=== PATIENT | female | born 1980 | race Caucasian/White ===

== ENCOUNTER 2019-08-18 16:46 | Inpatient (IN) | payer SELFPAY ==
[2019-08-18] VITALS (7 sets, daily range): BP systolic 102–118; BP diastolic 67–77; PULSE 66–101; RESP 16–18; TEMP 36.7–37.1; O2SAT 93–100; BMI 16.0
--- NOTE | 2019-08-18 17:57 | ED_ITS ---
HPI - Psych General: Chief Complaint: Psychiatric Symptoms Stated Complaint: MHE Time Seen by Provider: 08/18/19 17:56 History of Present Illness: HPI Narrative: Patient is a 38-year-old female comes into the ED feeling depressed and wanting to harm herself. Patient has past medical history of depression, anxiety, posttraumatic stress disorder and borderline personality disorder. She also has a history of opiate abuse. She admits to smoking marijuana but denies any other drug use or abuse. Denies any alcohol use. She states she's had multiple suicide attempts in the past all by overdose. Last October she lost her insurance and subsequently was unable to fill her psych medications and stopped going to go on to see behavioral health. She says since October things have gone downhill. She has trouble eating and feels like she doesn't have an appetite, has trouble sleeping, low energy, hopelessness and feels like wanting to end her life. Patient also describes some paranoia and feels like she can't trust people that are close to her. Patient states that she has not overdosed on any meds today had any suicide attempt today but was feeling very depressed and thinking about it a lot. She then decided she wanted to come into the emergency department to get help. She also is complaining of some right anterior wall pleuritic chest pain that started after she had a fall. Fall occurred about a week ago. Denies any loss of consciousness, head trauma, nausea, vomiting after fall. Denies any homicidal ideation, visual hallucinations, auditory hallucinations, shortness of breath, vomiting, abdominal pain, change in bowel movements, urine symptoms, numbness or tingling, weakness to extremities. Review of Systems General: Reports: 10 or more systems reviewed and unremarkable except in HPI and below PFSH ED PFSH: Statuses (acute, chronic, etc) shown below reflect problem list status as previously entered and may not be historically accurate Social History Smoking and tobacco status: current every day smoker Physical Exam Const: COMMON NORMALS: oriented x3 HENMT: COMMON NORMALS: normocephalic HEAD & SCALP: normocephalic MOUTH: oral and palatal mucosa normal THROAT: posterior oropharynx normal and uvula midline Neck/C-Spine: COMMON NORMALS: supple GENERAL: Yes normal visual inspection Chest: CHEST: Yes tenderness costochondral junction right anterior-axillary line involving the 7th rib and 8th rib Resp: COMMON NORMALS: normal respiratory effort, no retractions, no use of accessory muscles and clear to auscultation bilaterally AUSCULTATION: clear to auscultation bilaterally Cardio: COMMON NORMALS: regular rate, regular rhythm, S1 normal heart sound, S2 normal heart sound, no gallops, no clicks, no murmurs and peripheral pulses 2+ throughout RATE: regular rate RHYTHM: regular rhythm HEART SOUNDS: S1 normal and S2 normal PERIPHERAL PULSES: pulses 2+ throughout GI: COMMON NORMALS: normal to inspection, nondistended, normoactive bowel sounds, soft to palpation, non-tender and no masses PALPATION: Yes soft : COMMON NORMALS: Yes no CVA tenderness BLADDER/KIDNEY EXAM: Yes no CVA tenderness Back/Pelvis: COMMON NORMALS: no CVA tenderness Neuro: COMMON NORMALS: oriented x3, CN's II-XII intact bilaterally, moves all extremities, no focal motor deficits and no sensory deficits noted SENSORY EXAM: Yes extremities (intact) MOTOR EXAM: strength 5/5 throughout Psych: COMMON NORMALS: mental status grossly normal, thought process normal, cooperative, speech normal, activity/motor behavior normal, denies hallucinations and denies homicidal ideation ATTITUDE: Yes paranoid (paranoid of people close to her) SPEECH: Yes normal speech MOOD & AFFECT: Yes depressed mood, Yes sad and Yes tearful THOUGHT PROCESS: normal thought process THOUGHT CONTENT: Yes suicidality ATTENTION/CONCENTRATION: Yes attention grossly intact and Yes concentration grossly intact MEMORY/COGNITION: Yes memory grossly intact and Yes cognition grossly intact Skin: COMMON NORMALS: no rashes or lesions noted GENERAL SKIN EXAM: no rashes or lesions noted MDM - Psych Lab Data: Attestation: I reviewed the patient's lab results. Labs: Lab Results 08/18/19 08/18/19 08/18/19 Range/Units 17:03 17:03 17:03 WBC (4.0-10.0) 10^3/ uL RBC (4.1-5.3) 10^6/u L Hgb (11.5-15.3) g/dL Hct (37.0-47.0) % MCV (81-99) fL MCH (28.0-34.0) pg MCHC (30.0-36.0) g/dL RDW (12.1-15.1) % Plt Count (130-400) 10^3/c mm MPV (7.4-10.4) fL Neut % (Auto) % Lymph % (Auto) % Bremer % (Auto) % Eos % (Auto) % Baso % (Auto) % Neut # (Auto) (1.8-7.7) 10^3/u L Lymph # (Auto) (0.8-4.8) 10^3/u L Bremer # (Auto) (0.2-0.9) 10^3/u L Eos # (Auto) (0.0-0.8) 10^3/u L Baso # (Auto) (0.0-0.1) 10^3/u L Nucleated RBC % (a uto) % Nucleated RBCs # /100WBC PT (10.5-13.3) SECO NDS INR (0.8-1.2) Sodium (136-145) mmol/L Potassium (3.5-5.1) mmol/L Chloride (98-107) mmol/L Carbon Dioxide (22-29) mmol/L Anion Gap (5-19) BUN (6-20) mg/dL Creatinine (0.5-0.9) mg/dL GFR Calculation (90-130) mL/min Glucose (74-109) mg/dL Calcium (8.6-10.0) mg/Dl Total Bilirubin (0.15-1.2) mg/dL AST (0-32) U/L ALT (0-33) U/L Alkaline Phosphata se (35-105) IU/L Total Protein (6.6-8.7) g/dL Albumin (3.5-5.2) g/dL Globulin (1.3-4.6) g/dL TSH (0.27-4.20) uIU/ mL HCG, Qual Negative (Negative) Urine Color Yellow (Yellow) Urine Appearance Clear (CLEAR) Urine pH 5 (5-7) Ur Specific Gravit y 1.025 (1.005-1.030) Urine Protein Neg (Negative) Urine Glucose (UA) Norm (Normal) Urine Ketones Negative (Negative) Urine Occult Blood 2+ H (Negative) Urine Nitrate Negative (Negative) Urine Bilirubin Neg (NEGATIVE) Urine Urobilinogen Norm (Negative) mg/dL Ur Leukocyte Marily ase Negative (Negative) Urine RBC 5-10 H (0-2) /hpf Urine WBC 0-4 H (0-5) /hpf Ur Squamous Epith Cells 10-15 H (0-5) Urine Bacteria 1+ H (NONE) Urine Mucus 2+ Salicylates (3-10) mg/dL Urine Opiates Scre en Negative (Negative) ng/mL Acetaminophen (10-30) ug/mL Ur Barbiturates Sc reen Negative (Negative) ng/mL Ur Phencyclidine S crn Negative (Negative) ng/mL Ur Amphetamines Sc reen Positive H (Negative) ng/mL U Benzodiazepines Scrn Negative (Negative) ng/mL Urine Cocaine Scre en Negative (Negative) ng/mL U Marijuana (THC) Screen Positive H (Negative) ng/mL Ethyl Alcohol (0-10) mg/dL 08/18/19 08/18/19 08/18/19 Range/Units 19:28 19:28 19:28 WBC 7.1 (4.0-10.0) 10^3/ uL RBC 4.11 (4.1-5.3) 10^6/u L Hgb 12.4 (11.5-15.3) g/dL Hct 37.5 (37.0-47.0) % MCV 91.2 (81-99) fL MCH 30.2 (28.0-34.0) pg MCHC 33.1 (30.0-36.0) g/dL RDW 12.3 (12.1-15.1) % Plt Count 298 (130-400) 10^3/c mm MPV 8.5 (7.4-10.4) fL Neut % (Auto) 49.5 % Lymph % (Auto) 42.7 % Bremer % (Auto) 5.9 % Eos % (Auto) 1.7 % Baso % (Auto) 0.1 % Neut # (Auto) 3.5 (1.8-7.7) 10^3/u L Lymph # (Auto) 3.1 (0.8-4.8) 10^3/u L Bremer # (Auto) 0.4 (0.2-0.9) 10^3/u L Eos # (Auto) 0.1 (0.0-0.8) 10^3/u L Baso # (Auto) 0.0 (0.0-0.1) 10^3/u L Nucleated RBC % (a uto) 0 % Nucleated RBCs # 0.0 /100WBC PT 13.50 H (10.5-13.3) SECO NDS INR 1.00 (0.8-1.2) Sodium 141 (136-145) mmol/L Potassium 4.2 (3.5-5.1) mmol/L Chloride 105 (98-107) mmol/L Carbon Dioxide 26 (22-29) mmol/L Anion Gap 14.2 (5-19) BUN 16 (6-20) mg/dL Creatinine 0.4 L (0.5-0.9) mg/dL GFR Calculation 179.6 H (90-130) mL/min Glucose 103 (74-109) mg/dL Calcium 8.8 (8.6-10.0) mg/Dl Total Bilirubin 0.2 (0.15-1.2) mg/dL AST 11 (0-32) U/L ALT 10 (0-33) U/L Alkaline Phosphata se 79 (35-105) IU/L Total Protein 6.5 L (6.6-8.7) g/dL Albumin 3.9 (3.5-5.2) g/dL Globulin 2.6 (1.3-4.6) g/dL TSH 1.32 (0.27-4.20) uIU/ mL HCG, Qual (Negative) Urine Color (Yellow) Urine Appearance (CLEAR) Urine pH (5-7) Ur Specific Gravit y (1.005-1.030) Urine Protein (Negative) Urine Glucose (UA) (Normal) Urine Ketones (Negative) Urine Occult Blood (Negative) Urine Nitrate (Negative) Urine Bilirubin (NEGATIVE) Urine Urobilinogen (Negative) mg/dL Ur Leukocyte Marily ase (Negative) Urine RBC (0-2) /hpf Urine WBC (0-5) /hpf Ur Squamous Epith Cells (0-5) Urine Bacteria (NONE) Urine Mucus Salicylates < 0.3 L (3-10) mg/dL Urine Opiates Scre en (Negative) ng/mL Acetaminophen < 5.0 L (10-30) ug/mL Ur Barbiturates Sc reen (Negative) ng/mL Ur Phencyclidine S crn (Negative) ng/mL Ur Amphetamines Sc reen (Negative) ng/mL U Benzodiazepines Scrn (Negative) ng/mL Urine Cocaine Scre en (Negative) ng/mL U Marijuana (THC) Screen (Negative) ng/mL Ethyl Alcohol < 10 (0-10) mg/dL Imaging Data^: CXR: Attestation: I personally reviewed and interpreted this imaging study as follows: My impression: No acute abnormalities or rib fractures identified. Pending final radiology report. Discharge Plan Discharge Patient Disposition: Admitted As Inpatient Admit Provider: Lucas Thomas Condition: Stable Discharge Date/Time: 08/18/19 20:50 Coding Level of Care Code ED Air Carrier Maintenance Inspector for Rell Verde
--- NOTE | 2019-08-18 19:04 | XR_ITS ---
WS: [id number] Portable AP upright chest, 08/18/2019 Clinical Data: right anterior chest wall pain Comparison: PA and lateral chest, 07/26/2017. Findings: No nodules, masses or effusions are seen. The heart is normal. The pulmonary vascularity is not increased. No pneumonia or pneumothorax is seen. The diaphragms are minimally flattened. XR/XR chest 1V portable [id number] Impression: Mild hyperinflation.
[2019-08-18 19:23] LABS: HCG Qualitative Urine. Negative (Negative)
[2019-08-18 19:25] LABS: Add Urine Microscopic? YES; Bilirubin Urine Neg (NEGATIVE); Blood Urine 2+ (Negative); Glucose Urine UA Norm (Normal); Ketones Urine Negative (Negative); Leukocyte Esterase Urine Negative (Negative); Nitrate Urine Negative (Negative); Protein Urine Neg (Negative); Specific Gravity, Urine 1.025 (1.005-1.030); Urine Appearance Clear (CLEAR); Urine Color Yellow (Yellow); Urobilinogen Urine Norm (Negative); pH Urine 5 (5-7)
[2019-08-18 19:33] LABS: Bacteria Urine 1+; Mucus Urine 2+; WBC Urine 0-4 /hpf (0-5)
[2019-08-18 19:34] LABS: Basophils % 0.1 %; Eosinophils # 0.1 10^3/uL (0.0-0.8); Eosinophils % 1.7 %; Hematocrit 37.5 % (37.0-47.0); Hemoglobin 12.4 g/dL (11.5-15.3); Lymphocytes # 3.1 10^3/uL (0.8-4.8); Lymphocytes % 42.7 %; Mean Corpuscular HGB Conc 33.1 g/dL (30.0-36.0); Mean Corpuscular Hemoglobin 30.2 pg (28.0-34.0); Mean Corpuscular Volume 91.2 fL (81-99); Mean Platelet Volume 8.5 fL (7.4-10.4); Monocytes # 0.4 10^3/uL (0.2-0.9); Monocytes % 5.9 %; Neutrophils # 3.5 10^3/uL (1.8-7.7); Neutrophils % 49.5 %; Nucleated Red Blood Cells % 0 %; Platelet Count 298 10^3/cmm (130-400); Red Blood Count 4.11 10^6/uL (4.1-5.3); Red Cell Distribution Width 12.3 % (12.1-15.1); White Blood Count 7.1 10^3/uL (4.0-10.0)
[2019-08-18 19:40] LABS: Barbiturates Screen Urine Negative (Negative); Benzodiazepines Screen Urine Negative (Negative); Cocaine Screen Urine Negative (Negative); Opiate Screen Urine Negative (Negative); PCP Screen Urine Negative (Negative); THC Screen Urine Positive (Negative)
[2019-08-18 19:46] LABS: Amphetamines Screen Urine Positive (Negative)
[2019-08-18 20:04] LABS: Acetaminophen < 5.0 ug/mL (10-30); Alanine Aminotransferase 10 U/L (0-33); Albumin Level 3.9 g/dL (3.5-5.2); Alcohol Level < 10 mg/dL (0-10); Alkaline Phosphatase 79 IU/L (35-105); Anion Gap 14.2 (5-19); Aspartate Amino Transferase 11 U/L (0-32); Blood Urea Nitrogen 16 mg/dL (6-20); Calcium 8.8 mg/Dl (8.6-10.0); Carbon Dioxide 26 mmol/L (22-29); Chloride 105 mmol/L (98-107); Globulin 2.6 g/dL (1.3-4.6); Glomerular Filtration Rate 179.6 mL/min (90-130); Glucose 103 mg/dL (74-109); Potassium 4.2 mmol/L (3.5-5.1); Salicylate < 0.3 mg/dL (3-10); Sodium 141 mmol/L (136-145); Thyroid Stimulating Hormone 1.32 uIU/mL (0.27-4.20); Total Bilirubin 0.2 mg/dL (0.15-1.2); Total Protein 6.5 g/dL (6.6-8.7)
[2019-08-18] MEDS: LORazepam 1 mg Tablet PO (20:46)
[2019-08-18] MEDS: nicotine 21 mg Patch 1 PATCH TRANSDERMA (22:00)
[2019-08-19] MEDS: hyDROXYzine 25 mg Capsule 50 MG PO ×4 (00:46→23:57)
[2019-08-19 06:00] VITALS: BP 91/63; PULSE 71; RESP 16; TEMP 36.9; O2SAT 97
--- NOTE | 2019-08-19 07:41 | PM.NHP ---
Providers/Chief Complaint Admitting Physician: Lucas Thomas MD Chief Complaint: SUICIDAL HPI NPU History of Present Illness Chief complaint: I just want to be able to think straight. I get to where I just don't care anymore. History of present illness: Janice Finney Is a 38-year-old woman who came to the emergency room reporting that she was being labored by severe depression and having suicidal thoughts. She denied presence of intent or plan at the time. However she does report extensive psychosocial stressors that seem overwhelming and impossible over,. Specifically, she is living in the basement of a friend's house with her . Her 17-year-old daughter and 13-year-old son are living with their father and she seldom sees them. 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 She sees no way of extricating herself from the status of being homeless. She has a history of chronic pain and at the same time has a history of opiate abuse. She reports in the past she has been on methadone but most recently she was on Suboxone and is now running out of her Suboxone. When she cannot get her pain medications, she substitutes methamphetamine. She describes that as a self-destructive act are not suicide attempt. She reported a suicide attempt on the night before Jamarcus by taking a friend's and BuSpar. However that was impulsive. She reports feeling sad and blue on a daily basis. She has suicidal ideation on a daily basis that she has no intent or plan at this time. She denies a history of auditory or visual hallucinations. She reports feeling hopeless, overwhelmed, and useless. She has difficulty sleeping at night. Her appetite has been off and she has lost significant amount of weight. Her urine drug screen was positive for marijuana which she used the day prior to presentation. It was also positive for amphetamines that she reported methamphetamine use 3 days prior to presentation. She does not feel this substance use is a contributing factor as she only uses the methamphetamine when she cannot get her regularly prescribed Suboxone. Urine drug screen was positive for amphetamines and marijuana. ER note: HPI Narrative: Patient is a 38-year-old female comes into the ED feeling depressed and wanting to harm herself. Patient has past medical history of depression, anxiety, posttraumatic stress disorder and borderline personality disorder. She also has a history of opiate abuse. She admits to smoking marijuana but denies any other drug use or abuse. Denies any alcohol use. She states she's had multiple suicide attempts in the past all by overdose. Last October she lost her insurance and subsequently was unable to fill her psych medications and stopped going to go on to see [facility]. She says since October things have gone downhill. She has trouble eating and feels like she doesn't have an appetite, has trouble sleeping, low energy, hopelessness and feels like wanting to end her life. Patient also describes some paranoia and feels like she can't trust people that are close to her. Patient states that she has not overdosed on any meds today had any suicide attempt today but was feeling very depressed and thinking about it a lot. She then decided she wanted to come into the emergency department to get help. She also is complaining of some right anterior wall pleuritic chest pain that started after she had a fall. Fall occurred about a week ago. Denies any loss of consciousness, head trauma, nausea, vomiting after fall. Denies any homicidal ideation, visual hallucinations, auditory hallucinations, shortness of breath, vomiting, abdominal pain, change in bowel movements, urine symptoms, numbness or tingling, weakness to extremities. Mental health history:She was treated and outpatient rehabilitation at [facility] several visits ago. She has no inpatient psychiatric treatments at this facility according to records. She did not like being treated with Prozac because it decreased her sexual drive. Cymbalta and Wellbutrin caused her to nausea. She was last seen at the [facility] in April 2019. Her treatment plan at that time was: Stop Provigil Continue prazosin 2 mg at bedtime Continue trintillex 20 mg a day Continue Lamictal 100 mg twice a day Continue Ambien 10 mg at bedtime Continue Lamictal 25 mg twice a day Restart Adderall 10 mg twice daily for her hypersomnolence/REM sleep disorder Records also indicate that in the past she has been treated with clonazepam, Pristiq, Lamictal, methadone, Provigil and Zofran. Family psychiatric history is positive or mother being treated for depression, anxiety, and bipolar disorder. Her sister is also treated for depression and anxiety. Social history:As stated above, she is currently homeless. 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 What was not explored the reason is that she would not qualify for disability if that was the only reason that she were not working at [employer]. As stated above she has a 17-year-old daughter 13-year-old son are living with their biological father. The patient and her are living in the basement of friends. Legal history:During the interview she neglected to mention that in May 2019 she rested for Stealing - Controlled Substance/Meth [employer] Material { Aung Ross RSMo: 570.030 }. She failed to appear for her port date on 08/08/2019 and she currently has a warrant out for her arrest. Past medical history:She has no known drug allergies. She has been treated for peripheral neuropathy and chronic pain. Surgeries including cholecystectomy and tubal ligation. Mental Status Exam: Patient is alert and gave female appearing approximately her stated age. Except for some noteworthy exceptions in information that she neglected to divulge, she is generally felt to be a reliable source of information. Information presented is internally consistent and that generally supported by that in the chart. Appearance: hygiene is Good; no gross neurological deficits., gait is unremarkable; AIMS=0 Speech: Speech is of normal rate and rhythm and easily understood. Thought processes: Thought processes are abstract. Judgment is adequate for safety. Associations: intact Psychotic processes: There is no indication of guarding or paranoia. There is no attention to the internal stimuli. Auditory and visual hallucinations are denied. Judgment: Insight is Good. Problem solving skills are adequate for safety. Orientation: The patient is oriented to person, place time and situation. Memory: no deficits noted in immediate, intermediate, or remote spheres. Attention: The patient is alert and interpersonally engaged. Language: Verbalizations are coherent. Fund of knowledge: Fund of knowledge is adequate. Affect/Mood: Affect is inconsistent with a depressed mood. She reported passive suicidal ideation But no intent or plan at this time.Affective range . Psychosis: perception unimpaired except through cognitive distortion; reality testing intact. Diagnoses: Major depression?recurrent, severe, without psychotic features Opioid dependence?in early remission Amphetamine abuse disorder Marijuana abuse disorder Assessment:Janice Finney Is laboring under the effects of clinical depression overwhelming psychosocial stressors. She clearly has some strengths in good intellectual function, Appropriate self-awareness, and reasonable expectations in short and long-term planning. However at this time goal is to establish her being clean and sober and initiate treatment for depression. We will specifically stay away from The dictated noncontributory medications like stimulants. Treatment plan: Due to the psychiatric conditions and treatment listed in the Assessment and Plan - the patient requires continued hospitalization. Will provide a safe and therapeutic environment for patient.. Will continue inpatient treatment to allow for medication adjustment and monitoring. Will continue q15 min safety checks. Will initiate Celexa 20 mg daily and provide Ambien 10 mg at bedtime. Both have been well-tolerated the past and the patient reports them as being effective. If we can confirm that she has been on Suboxone in the past that will be restarted. Monitor patient's mood, sleep, appetite, and behavior closely. Encourage patient to participate in individual and group therapeutic sessions on the kaufman. Estimated length of stay 5 days The expected benefits and potential side effects of patient's psychiatric medications were discussed with the patient. The patient understands and consents to treatment.CRITERIA FOR DISCHARGE: stable on medications and no longer an im Meds NPU Home Medications Medication Instructions Recorded Confirmed Type buprenorphine-naloxone [Suboxone] 1 film BUCCAL DAILY 08/18/19 08/18/19 History Allergies Allergy/AdvReac Type Severity Reaction Status Date / Time No Known Allergies Allergy Verified 08/18/19 16:57 PFS NPU PFSH: Statuses (acute, chronic, etc) shown below reflect problem list status as previously entered and may not be historically accurate Social History Smoking and tobacco status: current every day smoker Vitals/I&O/Wt Last Vital Signs Temp 98.4 F 08/19/19 06:00 Pulse 71 08/19/19 06:00 Resp 16 08/19/19 06:00 BP 91/63 08/19/19 06:00 Pulse Ox 97 08/19/19 06:00 Weight last 48 hrs Weight 38.555 kg Data NPU : 08/18/19 19:28 08/18/19 19:28 Other Labs: Involuntary Hold Information 96 Hour Hold: 96 Hour Involuntary Admission: No Attestations NPU Medical Necessity Statement*: Patient will remain in the hospital another 4 or 5 nights while her medication regimen is stabilized and symptoms of depression improved. Coding Level of Care Code Acute Binding End Stitcher for Rell Verde
--- NOTE | 2019-08-19 08:24 | PC.NURSE ---
PRN VISTARIL VISTARIL 50MG PO PER PT C/O ANXIETY. WILL CONTINUE TO MONITOR FOR MEDICATION EFFECTIVENESS.
--- NOTE | 2019-08-19 09:30 | PC.NURSE ---
PRN VISTARIL FOLLOW UP MEDICATION EFFECTIVE. NO FURTHER C/O ANXIETY.
[2019-08-19 13:32] VITALS: BP 115/75; PULSE 103; RESP 20; TEMP 36.6; O2SAT 96
[2019-08-19] MEDS: citalopram 20 mg Tablet PO (14:02)
[2019-08-19] MEDS: ibuprofen 600 mg Tablet PO (14:02)
[2019-08-19] MEDS: buprenorphine-naloxone 4-1 mg Film 1 EACH SUBLINGUAL (14:48)
--- NOTE | 2019-08-19 17:15 | PC.NURSE ---
PRN VISTARIL VISTARIL 50MG PO PER PT C/O ANXIETY. WILL CONTINUE TO MONITOR FOR MEDICATION EFFECTIVENESS.
--- NOTE | 2019-08-19 18:15 | PC.NURSE ---
PRN VISTARIL FOLLOW UP MEDICATION EFFECTIVE. NO FURTHER C/O ANXIETY.
[2019-08-19 20:00] VITALS: BP 108/73; PULSE 87; RESP 21; TEMP 36.9
[2019-08-19] MEDS: zolpidem 5 mg Tablet PO (20:48)
[2019-08-19 21:58] VITALS: BP 108/73; PULSE 87; RESP 21; TEMP 36.9
[2019-08-20] MEDS: nicotine 21 mg Patch 1 PATCH TRANSDERMA (05:04)
[2019-08-20 05:16] VITALS: BP 115/76; PULSE 70; RESP 16; TEMP 36.6; O2SAT 94
[2019-08-20] MEDS: buprenorphine-naloxone 4-1 mg Film 1 EACH SUBLINGUAL (08:09)
[2019-08-20] MEDS: citalopram 20 mg Tablet PO (08:09)
--- NOTE | 2019-08-20 09:59 | P.PN_ITS ---
Subjective NPU Subjective: Interval history: Patient complains of only sleeping for 3 or 4 hours on the Ambien and that she is feeling antsy and irritable. She reports a history of restless leg syndrome after taking trazodone. She says what she is experiencing today is similar to that. This is day #2 on her Celexa. Mental Status Exam MSE Comments: Mental Status Exam: Patient is alert and gave female appearing approximately her stated age. Except for some noteworthy exceptions in information that she neglected to divulge, she is generally felt to be a reliable source of information. Information presented is internally consistent and that generally supported by that in the chart. Appearance: hygiene is Good; no gross neurological deficits., gait is unremarkable; AIMS=0 Speech: Speech is of normal rate and rhythm and easily understood. Thought processes: Thought processes are abstract. Judgment is adequate for safety. Associations: intact Psychotic processes: There is no indication of guarding or paranoia. There is no attention to the internal stimuli. Auditory and visual hallucinations are denied. Judgment: Insight is Good. Problem solving skills are adequate for safety. Orientation: The patient is oriented to person, place time and situation. Memory: no deficits noted in immediate, intermediate, or remote spheres. Attention: The patient is alert and interpersonally engaged. Language: Verbalizations are coherent. Fund of knowledge: Fund of knowledge is adequate. Affect/Mood: Affect is inconsistent with a depressed mood. She reported passive suicidal ideation But no intent or plan at this time.Affective range . Psychosis: perception unimpaired except through cognitive distortion; reality testing intact. Vitals/I&O/Wt Last Vital Signs Temp 98 F 08/20/19 05:16 Pulse 70 08/20/19 05:16 Resp 16 08/20/19 05:16 BP 115/76 08/20/19 05:16 Pulse Ox 94 08/20/19 05:16 Weight last 48 hrs Weight 38.555 kg Data NPU : 08/18/19 19:28 08/18/19 19:28 A&P Additional A&P Information Diagnoses: Major depression?recurrent, severe, without psychotic features Opioid dependence?in early remission Amphetamine abuse disorder Marijuana abuse disorder Assessment:Janice Finney Is laboring under the effects of clinical depression overwhelming psychosocial stressors. She clearly has some strengths in good intellectual function, Appropriate self-awareness, and reasonable expectations in short and long-term planning. However at this time goal is to establish her being clean and sober and initiate treatment for depression. We will specifically stay away from The dictated noncontributory medications like stimulants. Treatment plan: Due to the psychiatric conditions and treatment listed in the Assessment and Plan - the patient requires continued hospitalization. Will provide a safe and therapeutic environment for patient.. Will continue inpatient treatment to allow for medication adjustment and monitoring. Will continue q15 min safety checks. Will initiate Celexa 20 mg daily and provide Ambien 5 mg at bedtime. Both have been well-tolerated the past and the patient reports them as being effective. If we can confirm that she has been on Suboxone in the past that will be restarted. Hospital day #2: Patient was getting inadequate sleep with Ambien and is experiencing increased irritability and restless legs after initiating an SSRI. Plan: Continue Suboxone and Ambien. Stop Celexa and trazodone. Initiate imipramine 50 mg at bedtime. We'll increase as tolerated.She was also encouraged to utilize her hydroxyzine for anxiety. Monitor patient's mood, sleep, appetite, and behavior closely. Encourage patient to participate in individual and group therapeutic sessions on the kaufman. Estimated length of stay 5 days The expected benefits and potential side effects of patient's psychiatric medications were discussed with the patient. The patient understands and consents to treatment.CRITERIA FOR DISCHARGE: stable on medications and no ferdinand trin[place] an im Involuntary Hold Information 96 Hour Hold: 96 Hour Involuntary Admission: No Attestations NPU Medical Necessity Statement*: Patient will remain in the hospital another 3-4 nights until her medication regimen is stabilized. Coding Level of Care Code Acute Tow Truck Driver for Rell Verde
[2019-08-20] MEDS: hyDROXYzine 25 mg Capsule PO ×2 (10:05→18:27)
[2019-08-20 13:59] VITALS: BP 115/76; PULSE 70; RESP 16; TEMP 36.6; O2SAT 94
[2019-08-20 14:30] VITALS: BP 97/62; PULSE 88; RESP 18; TEMP 36.8; O2SAT 94
--- NOTE | 2019-08-20 16:24 | PC.NURSE ---
PRN VISTARIL PT GIVEN 25MG VISTARIL PO FOR ANXIETY.
[2019-08-20] MEDS: zolpidem 5 mg Tablet PO (20:19)
[2019-08-20 20:28] VITALS: BP 104/67; PULSE 78; RESP 20; TEMP 36.9
[2019-08-21] MEDS: hyDROXYzine 25 mg Capsule PO (00:31)
[2019-08-21 06:00] VITALS: BP 106/68; PULSE 78; RESP 20; TEMP 36.7
--- NOTE | 2019-08-21 08:30 | P.PN_ITS ---
Subjective NPU Subjective: Interval history: Patient complains of only sleeping for 3 or 4 hours on the Ambien . for some reason the imipramine did not get started last night.. Mental Status Exam MSE Comments: Mental Status Exam: Patient is alert and gave female appearing approximately her stated age. Except for some noteworthy exceptions in information that she neglected to divulge, she is generally felt to be a reliable source of information. Information presented is internally consistent and that generally supported by that in the chart. Appearance: hygiene is Good; no gross neurological deficits., gait is unremarkable; AIMS=0 Speech: Speech is of normal rate and rhythm and easily understood. Thought processes: Thought processes are abstract. Judgment is adequate for safety. Associations: intact Psychotic processes: There is no indication of guarding or paranoia. There is no attention to the internal stimuli. Auditory and visual hallucinations are denied. Judgment: Insight is Good. Problem solving skills are adequate for safety. Orientation: The patient is oriented to person, place time and situation. Memory: no deficits noted in immediate, intermediate, or remote spheres. Attention: The patient is alert and interpersonally engaged. Language: Verbalizations are coherent. Fund of knowledge: Fund of knowledge is adequate. Affect/Mood: Affect is inconsistent with a depressed mood. She reported passive suicidal ideation But no intent or plan at this time.Affective range . Psychosis: perception unimpaired except through cognitive distortion; reality testing intact. Cognition: Level of Consciousness: Awake, Alert, Appropriate and Follows Commands Patient Cognition Impaired: No Ability to Follow Directions: Excellent Patient Orientation (long list): Person, Place, Time, Name, Age and Birthday Comprehension Ability: No Impairment Hallucination Type: None Delusion Description: Not Present Thought Process: Appropriate Affect: Affect Description: Appropriate and Calm Depressive Symptoms: Hopelessness, Insomnia, Loss of Interest in Activities, Significant Weight Loss and Unhappiness Behavior: Patient Behavior: Appropriate Speech Pattern: Clear Vitals/I&O/Wt Last Vital Signs Temp 98.1 F 08/21/19 06:00 Pulse 78 08/21/19 06:00 Resp 20 H 08/21/19 06:00 BP 106/68 08/21/19 06:00 Pulse Ox 94 08/20/19 14:30 Weight last 48 hrs Weight 43.273 kg Weight 43.273 kg Data NPU : 08/18/19 19:28 08/18/19 19:28 A&P Additional A&P Information Diagnoses: Major depression?recurrent, severe, without psychotic features Opioid dependence?in early remission Amphetamine abuse disorder Marijuana abuse disorder Assessment:Janice Finney Is laboring under the effects of clinical depression overwhelming psychosocial stressors. She clearly has some strengths in good intellectual function, Appropriate self-awareness, and reasonable expectations in short and long-term planning. However at this time goal is to establish her being clean and sober and initiate treatment for depression. We will specifically stay away from The dictated noncontributory medications like stimulants. Treatment plan: Due to the psychiatric conditions and treatment listed in the Assessment and Plan - the patient requires continued hospitalization. Will provide a safe and therapeutic environment for patient.. Will continue inpatient treatment to allow for medication adjustment and monitoring. Will continue q15 min safety checks. Will initiate Celexa 20 mg daily and provide Ambien 5 mg at bedtime. Both have been well-tolerated the past and the patient reports them as being effective. If we can confirm that she has been on Suboxone in the past that will be restarted. Hospital day #2: Patient was getting inadequate sleep with Ambien and is experiencing increased irritability and restless legs after initiating an SSRI. Plan: Continue Suboxone and Ambien. Stop Celexa and trazodone. Initiate imipramine 50 mg at bedtime. We'll increase as tolerated.She was also encoura joel to utilize her hydroxyzine for anxiety. HD#3: Patient complains of only sleeping for 3 or 4 hours on the Ambien . for some reason the imipramine did not get started last night.. PLAN: imipramine 50 mg at bedtime and increase as tolerated. She refused Rmeron. Tonio provide prn lorazepam but only while in the hospital. Will not be prescribed on discharge. Monitor patient's mood, sleep, appetite, and behavior closely. Encourage patient to participate in individual and group therapeutic sessions on the kaufman. Estimated length of stay 5 days The expected benefits and potential side effects of patient's psychiatric medications were discussed with the patient. The patient understands and consent s to treatment.CRITERIA FOR DISCHARGE: stable on medications and no longer an im Involuntary Hold Information 96 Hour Hold: 96 Hour Involuntary Admission: No Attestations NPU Medical Necessity Statement*: pt will remian in hospital for 2-3 more nights because of medication ineffectiveness Coding Level of Care Code Acute Steward/Stewardess Third for Demetrag Ammon
[2019-08-21] MEDS: buprenorphine-naloxone 4-1 mg Film 1 EACH SUBLINGUAL (09:03)
[2019-08-21] MEDS: LORazepam 0.5 mg Tablet PO ×2 (09:05→20:29)
[2019-08-21] MEDS: nicotine 21 mg Patch 1 PATCH TRANSDERMA (09:20)
[2019-08-21 14:00] VITALS: BP 107/68; PULSE 114; RESP 18; TEMP 36.7; O2SAT 97
[2019-08-21 19:54] VITALS: BP 112/75; PULSE 93; RESP 17; TEMP 36.9; O2SAT 96
[2019-08-22] MEDS: hyDROXYzine 25 mg Capsule PO ×2 (00:20→21:28)
[2019-08-22 06:00] VITALS: BP 92/84; PULSE 81; RESP 16; TEMP 36.4; O2SAT 97
--- NOTE | 2019-08-22 09:39 | PM.NPN ---
Subjective NPU Subjective: Interval history: Patient complains of only sleeping for 3 or 4 hours. She tolerated the imipramine but still inadequate sleep. In the past, she has taken prazosin for PTSD that was helpful. Unclear why they gave her Ativan at bedtime last night. She is highly motivated to access individual psychotherapy and case management. Mental Status Exam MSE Comments: Mental Status Exam: Patient is alert and gave female appearing approximately her stated age. Except for some noteworthy exceptions in information that she neglected to divulge, she is generally felt to be a reliable source of information. Information presented is internally consistent and that generally supported by that in the chart. Appearance: hygiene is Good; no gross neurological deficits., gait is unremarkable; AIMS=0 Speech: Speech is of normal rate and rhythm and easily understood. Thought processes: Thought processes are abstract. Judgment is adequate for safety. Associations: intact Psychotic processes: There is no indication of guarding or paranoia. There is no attention to the internal stimuli. Auditory and visual hallucinations are denied. Judgment: Insight is Good. Problem solving skills are adequate for safety. Orientation: The patient is oriented to person, place time and situation. Memory: no deficits noted in immediate, intermediate, or remote spheres. Attention: The patient is alert and interpersonally engaged. Language: Verbalizations are coherent. Fund of knowledge: Fund of knowledge is adequate. Affect/Mood: Affect is consistent with a depressed mood. She denied passive suicidal ideation; no intent or plan at this time.Affective range is good . Psychosis: perception unimpaired except through cognitive distortion; reality testing intact. Cognition: Patient Appearance: Appropriate Level of Consciousness: Awake, Alert, Appropriate and Follows Commands Patient Cognition Impaired: No Ability to Follow Directions: Excellent Patient Orientation (long list): Person and Place Comprehension Ability: No Impairment Hallucination Type: None Delusion Description: Not Present Thought Process: Appropriate Affect: Affect Description: Appropriate Depressive Symptoms: Hopelessness, Insomnia, Loss of Interest in Activities, Significant Weight Loss and Unhappiness Behavior: Patient Behavior: Appropriate Speech Pattern: Appropriate Vitals/I&O/Wt Last Vital Signs Temp 97.6 F 08/22/19 06:00 Pulse 81 08/22/19 06:00 Resp 16 08/22/19 06:00 BP 92/84 08/22/19 06:00 Pulse Ox 97 08/22/19 06:00 Weight last 48 hrs Weight 43.273 kg Weight 43.273 kg Data NPU : 08/18/19 19:28 08/18/19 19:28 A&P Additional A&P Information Diagnoses: Major depression?recurrent, severe, without psychotic features Opioid dependence?in early remission Amphetamine abuse disorder Marijuana abuse disorder Assessment:Janice Finney Is laboring under the effects of clinical depression overwhelming psychosocial stressors. She clearly has some strengths in good intellectual function, Appropriate self-awareness, and reasonable expectations in short and long-term planning. However at this time goal is to establish her being clean and sober and initiate treatment for depression. We will specifically stay away from The dictated noncontributory medications like stimulants. Treatment plan: Due to the psychiatric conditions and treatment listed in the Assessment and Plan - the patient requires continued hospitalization. Will provide a safe and therapeutic environment for patient.. Will continue inpatient treatment to allow for medication adjustment and monitoring. Will continue q15 min safety checks. Will initiate Celexa 20 mg daily and provide Ambien 5 mg at bedtime. Both have been well-tolerated the past and the patient reports them as being effective. If we can confirm that she has been on Suboxone in the past that will be restarted. Hospital day #2: Patient was getting inadequate sleep with Ambien and is experiencing increased irritability and restless legs after initiating an SSRI. Plan: Continue Suboxone and Ambien. Stop Celexa and trazodone. Initiate imipramine 50 mg at bedtime. We'll increase as tolerated.She was also encouraged to utilize her hydroxyzine for anxiety. HD#3: Patient complains of only sleeping for 3 or 4 hours on the Ambien . for some reason the imipramine did not get started last night.. PLAN: imipramine 50 mg at bedtime and increase as tolerated. She refused Rmeron. Tonio provide prn lorazepam but only while in the hospital. Will not be prescribed on discharge. HD#4: Patient complains of only sleeping for 3 or 4 hours. She tolerated the imipramine but still inadequate sleep. In the past, she has taken prazosin for PTSD that was helpful. Unclear why they gave her Ativan at bedtime last night. She is highly motivated to access individual psychotherapy and case management. PLAN: increase to 100 mg at bedtime; stop both ambien and ativan at bedtime; start Prazosin 1 mg at bedtime; specifically discussed possibility and signs of hypotension; will address need for f/u psychotherapy with social work service Monitor patient's mood, sleep, appetite, and behavior closely. Encourage patient to participate in individual and group therapeutic sessions on the kaufman. Estimated length of stay 5 days The expected benefits and potential side effects of patient's psychiatric medications were discussed with the patient. The patient understands and consents to treatment.CRITERIA FOR DISCHARGE: stable on medications and no longer an im Involuntary Hold Information 96 Hour Hold: 96 Hour Involuntary Admission: No Attestations NPU Medical Necessity Statement*: Pt to remain in hosptial another 1-2 nights for improved medication treatment Coding Level of Care Code Acute Career Discovery Teacher for Rell Verde
[2019-08-22] MEDS: buprenorphine-naloxone 4-1 mg Film 1 EACH SUBLINGUAL (09:50)
[2019-08-22] MEDS: LORazepam 0.5 mg Tablet PO ×2 (09:50→17:45)
--- NOTE | 2019-08-22 09:50 | PC.NURSE ---
PRN ATIVAN ATIVAN 0.5MG PO PER PT C/O ANXIETY. WILL CONTINUE TO MONITOR FOR MEDICATION EFFECTIVENESS.
--- NOTE | 2019-08-22 10:48 | PC.NURSE ---
prn ativan follow up medication effective. no further c/o anxiety.
[2019-08-22] MEDS: nicotine 21 mg Patch 1 PATCH TRANSDERMA (10:52)
[2019-08-22 14:00] VITALS: BP 110/76; PULSE 94; RESP 20; TEMP 36.8; O2SAT 96
--- NOTE | 2019-08-22 17:45 | PC.NURSE ---
Addendum entered by Vannesa Horta LPN 08/22/19 18:49: MEDICATION EFFECTIVE. NO FURTHER C/O ANXIETY. Original Note: PRN ATIVAN ATIVAN 0.5MG PO PER PT C/O ANXIETY. WILL CONTINUE TO MONITOR FOR MEDICATION EFFECTIVENESS.
[2019-08-22 20:32] VITALS: BP 91/60; PULSE 114; RESP 18; TEMP 36.9; O2SAT 96
[2019-08-22] MEDS: prazosin 1 mg Capsule PO (21:21)
--- NOTE | 2019-08-22 22:15 | PC.NURSE ---
PT C/O ANXIETY AT 2127 AND REQUESTED PRN OF VISTARIL. MEDICATED WITH VISTARIL 25 MGS PO AND RETURNED TO HER ROOM. APPEARS TO BE RESTING COMFORTABLY WITH EYES CLOSED AT THIS TIME. WILL CONTINUE TO MONITOR
[2019-08-23 06:00] VITALS: BP 95/63; PULSE 85; RESP 18; TEMP 36.6; O2SAT 97
[2019-08-23] MEDS: buprenorphine-naloxone 4-1 mg Film 1 EACH SUBLINGUAL (09:04)
[2019-08-23] MEDS: LORazepam 0.5 mg Tablet PO ×3 (09:07→23:40)
--- NOTE | 2019-08-23 09:07 | PC.NURSE ---
PRN ATIVAN ATIVAN 0.5MG PO PER PT C/O ANXIETY. WILL CONTINUE TO MONITOR FOR MEDICATION EFFECTIVENESS.
--- NOTE | 2019-08-23 10:00 | PC.NURSE ---
PRN ATIVAN FOLLOW UP MEDICATION EFFECTIVE. NO FURTHER C/O ANXIETY.
[2019-08-23] MEDS: nicotine 21 mg Patch 1 PATCH TRANSDERMA (11:45)
[2019-08-23] MEDS: polyethylene glycol 3350 Pkt 17 gm PO (13:22)
[2019-08-23 14:00] VITALS: BP 100/58; PULSE 98; RESP 20; TEMP 36.8; O2SAT 95
--- NOTE | 2019-08-23 17:02 | PM.NPN ---
Subjective NPU Subjective: Interval history: Patient Is without complaint. She has developed a discharge plan where she will likely go to [place] and enter their homeless program and utilize the services of [facility] for her mental health support. She is highly motivated to access individual psychotherapy and case management. Mental Status Exam MSE Comments: Mental Status Exam: Patient is alert and gave female appearing approximately her stated age. Information presented is internally consistent and that generally supported by that in the chart. Appearance: hygiene is Good; no gross neurological deficits., gait is unremarkable; AIMS=0 Speech: Speech is of normal rate and rhythm and easily understood. Thought processes: Thought processes are abstract. Judgment is adequate for safety. Associations: intact Psychotic processes: There is no indication of guarding or paranoia. There is no attention to the internal stimuli. Auditory and visual hallucinations are denied. Judgment: Insight is Good. Problem solving skills are adequate for safety. Orientation: The patient is oriented to person, place time and situation. Memory: no deficits noted in immediate, intermediate, or remote spheres. Attention: The patient is alert and interpersonally engaged. Language: Verbalizations are coherent. Fund of knowledge: Fund of knowledge is adequate. Affect/Mood: Affect is consistent with a euthymic mood. She denied suicidal ideation; no intent or plan at this time.Affective range is good . Psychosis: perception unimpaired except through cognitive distortion; reality testing intact. Cognition: Patient Appearance: Appropriate Level of Consciousness: Awake, Alert, Appropriate and Follows Commands Patient Cognition Impaired: No Ability to Follow Directions: Excellent Patient Orientation (long list): Person and Place Comprehension Ability: No Impairment Hallucination Type: None Delusion Description: Not Present Thought Process: Appropriate Affect: Affect Description: Calm Depressive Symptoms: Hopelessness, Insomnia, Loss of Interest in Activities, Significant Weight Loss and Unhappiness Behavior: Patient Behavior: Cooperative Speech Pattern: Clear Vitals/I&O/Wt Last Vital Signs Temp 98.2 F 08/23/19 14:00 Pulse 98 08/23/19 14:00 Resp 20 H 08/23/19 14:00 BP 100/58 08/23/19 14:00 Pulse Ox 95 08/23/19 14:00 Data NPU : 08/18/19 19:28 08/18/19 19:28 A&P Additional A&P Information Diagnoses: Major depression?recurrent, severe, without psychotic features Opioid dependence?in early remission Amphetamine abuse disorder Marijuana abuse disorder Assessment:Janice Finney Is laboring under the effects of clinical depression overwhelming psychosocial stressors. She clearly has some strengths in good intellectual function, Appropriate self-awareness, and reasonable expectations in short and long-term planning. However at this time goal is to establish her being clean and sober and initiate treatment for depression. We will specifically stay away from The dictated noncontributory medications like stimulants. Treatment plan: Due to the psychiatric conditions and treatment listed in the Assessment and Plan - the patient requires continued hospitalization. Will provide a safe and therapeutic environment for patient.. Will continue inpatient treatment to allow for medication adjustment and monitoring. Will continue q15 min safety checks. Will initiate Celexa 20 mg daily and provide Ambien 5 mg at bedtime. Both have been well-tolerated the past and the patient reports them as being effective. If we can confirm that she has been on Suboxone in the past that will be restarted. Hospital day #2: Patient was getting inadequate sleep with Ambien and is experiencing increased irritability and restless legs after initiating an SSRI. Plan: Continue Suboxone and Ambien. Stop Celexa and trazodone. Initiate imipramine 50 mg at bedtime. We'll increase as tolerated.She was also encouraged to utilize her hydroxyzine for anxiety. HD#3: Patient complains of only sleeping for 3 or 4 hours on the Ambien . for some reason the imipramine did not get started last night.. PLAN: imipramine 50 mg at bedtime and increase as tolerated. She refused Rmeron. Tonio provide prn lorazepam but only while in the hospital. Will not be prescribed on discharge. HD#4: Patient complains of only sleeping for 3 or 4 hours. She tolerated the imipramine but still inadequate sleep. In the past, she has taken prazosin for PTSD that was helpful. Unclear why they gave her Ativan at bedtime last night. She is highly motivated to access individual psychotherapy and case management. PLAN: increase to 100 mg at bedtime; stop both ambien and ativan at bedtime; start Prazosin 1 mg at bedtime; specifically discussed possibility and signs of hypotension; will address need for f/u psychotherapy with social work service Hospital 5: No changes in medication. Discharge planning initiated Monitor patient's mood, sleep, appetite, and behavior closely. Encourage patient to participate in individual and group therapeutic sessions on the kaufman. Estimated length of stay 5 days The expected benefits and potential side effects of patient's psychiatric medications were discussed with the patient. The patient understands and consents to treatment.CRITERIA FOR DISCHARGE: stable on medications and no longer an im Involuntary Hold Information 96 Hour Hold: 96 Hour Involuntary Admission: No Attestations NPU Medical Necessity Statement*: Patient will remain in hospital another 1-2 nights so safe discharge planning can be provided. Coding Level of Care Code Acute Remote Sensing Engineer for Rell Verde
[2019-08-23] MEDS: prazosin 1 mg Capsule PO (20:43)
[2019-08-23 21:09] VITALS: BP 104/69; PULSE 99; RESP 17; TEMP 36.9; O2SAT 99
--- NOTE | 2019-08-23 23:46 | PC.NURSE ---
PT UP TO DESK C/O MILD ANXIETY. MEDICATED WITH ATIVAN 0.5 MG PO. WILL CONTINUE TO MONITOR
--- NOTE | 2019-08-24 01:27 | PC.NURSE ---
PT VERBALIZED THAT ANXIETY DECREASED SINCE RECEIVING PRN ATIVAN
[2019-08-24 06:00] VITALS: BP 105/71; PULSE 81; RESP 17; TEMP 36.6; O2SAT 98
[2019-08-24] MEDS: buprenorphine-naloxone 4-1 mg Film 1 EACH SUBLINGUAL (09:45)
[2019-08-24] MEDS: LORazepam 0.5 mg Tablet PO (09:47)
--- NOTE | 2019-08-24 09:47 | PC.NURSE ---
Addendum entered by Vannesa Horta LPN 08/24/19 10:42: MEDICATION EFFECTIVE. NO FURTHER C/O ANXIETY. Original Note: PRN ATIVAN ATIVAN 0.5 MG PO PER PT C/O ANXIETY. WILL CONTINUE TO MONITOR FOR MEDICATION EFFECTIVENESS.
[2019-08-24] MEDS: nicotine 21 mg Patch 1 PATCH TRANSDERMA (12:11)
[2019-08-24 14:30] VITALS: BP 105/71; PULSE 81; RESP 17; TEMP 36.6; O2SAT 98
[2019-08-24 14:48] VITALS: BP 105/71; PULSE 81; RESP 17; TEMP 36.6; O2SAT 98
[2019-08-24 15:12] VITALS: BP 105/71; PULSE 81; RESP 17; TEMP 36.6; O2SAT 98
--- NOTE | 2019-08-25 08:00 | P.DS_ITS ---
Reason for Visit Reason for Visit: Reason For Visit: SUICIDAL Brief History: Chief complaint : I just want to be able to think straight. I get to where I just don't care anymore. History of present illness: Janice Finney Is a 38-year-old woman who came to the emergency room reporting that she was being labored by severe depression and having suicidal thoughts. She denied presence of intent or plan at the time. However she does report extensive psychosocial stressors that seem overwhelming and impossible over,. Specifically, she is living in the basement of a friend's house with her . Her 17-year-old daughter and 13-year-old son are living with their father and she seldom sees them. 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 She sees no way of extricating herself from the status of being homeless. She has a history of chronic pain and at the same time has a history of opiate abuse. She reports in the past she has been on methadone but most recently she was on Suboxone and is now running out of her Suboxone. When she cannot get her pain medications, she substitutes methamphetamine. She describes that as a self-destructive act are not suicide attempt. She reported a suicide attempt on the night before [facility] by taking a friend's and BuSpar. However that was impulsive. She reports feeling sad and blue on a daily basis. She has suicidal ideation on a daily basis that she has no intent or plan at this time. She denies a history of auditory or visual hallucinations. She reports feeling hopeless, overwhelmed, and useless. She has difficulty sleeping at night. Her appetite has been off and she has lost significant amount of weight. Her urine drug screen was positive for marijuana which she used the day prior to presentation. It was also positive for amphetamines that she reported methamphetamine use 3 days prior to presentation. She does not feel this substance use is a contributing factor as she only uses the methamphetamine when she cannot get her regularly prescribed Suboxone. Urine drug screen was positive for amphetamines and marijuana. ER note: HPI Narrative: Patient is a 38-year-old female comes into the ED feeling depressed and wanting to harm herself. Patient has past medical history of depression, anxiety, posttraumatic stress disorder and borderline personality disorder. She also has a history of opiate abuse. She admits to smoking marijuana but denies any other drug use or abuse. Denies any alcohol use. She states she's had multiple suicide attempts in the past all by overdose. Last October she lost her insurance and subsequently was unable to fill her psych medications and stopped going to go on to see behavioral health. She says since October things have gone downhill. She has trouble eating and feels like she doesn't have an appetite, has trouble sleeping, low energy, hopelessness and feels like wanting to end her life. Patient also describes some paranoia and feels like she can't trust people that are close to her. Patient states that she has not overdosed on any meds today had any suicide attempt today but was feeling very depressed and thinking about it a lot. She then decided she wanted to come into the emergency department to get help. She also is complaining of some right anterior wall pleuritic chest pain that started after she had a fall. Fall occurred about a week ago. Denies any loss of consciousness, head trauma, nausea, vomiting after fall. Denies any homicidal ideation, visual hallucinations, auditory hallucinations, shortness of breath, vomiting, abdominal pain, change in bowel movements, urine symptoms, numbness or tingling, weakness to extremities. Hospital Course Discharge Summary Assessment:Janice Finney Is laboring under the effects of clinical depression overwhelming psychosocial stressors. She clearly has some strengths in good intellectual function, Appropriate self-awareness, and reasonable expectations in short and long-term planning. However at this time goal is to establish her being clean and sober and initiate treatment for depression. We will specifically stay away from The dictated noncontributory medications like stimulants. Treatment plan: Due to the psychiatric conditions and treatment listed in the Assessment and Plan - the patient requires continued hospitalization. Will provide a safe and therapeutic environment for patient.. Will continue inpatient treatment to allow for medication adjustment and monitoring. Will continue q15 min safety checks. Will initiate Celexa 20 mg daily and provide Ambien 5 mg at bedtime. Both have been well-tolerated the past and the patient reports them as being effective. If we can confirm that she has been on Suboxone in the past that will be restarted. Hospital day #2: Patient was getting inadequate sleep with Ambien and is experiencing increased irritability and restless legs after initiating an SSRI. Plan: Continue Suboxone and Ambien. Stop Celexa and trazodone. Initiate imipramine 50 mg at bedtime. We'll increase as tolerated.She was also encouraged to utilize her hydroxyzine for anxiety. HD#3: Patient complains of only sleeping for 3 or 4 hours on the Ambien . for some reason the imipramine did not get started last night.. PLAN: imipramine 50 mg at bedtime and increase as tolerated. She refused Rmeron. Tonio provide prn lorazepam but only while in the hospital. Will not be prescribed on discharge. HD#4: Patient complains of only sleeping for 3 or 4 hours. She tolerated the imipramine but still inadequate sleep. In the past, she has taken prazosin for PTSD that was helpful. Unclear why they gave her Ativan at bedtime last night. She is highly motivated to access individual psychotherapy and case management. PLAN: increase to 100 mg at bedtime; stop both ambien and ativan at bedtime; start Prazosin 1 mg at bedtime; specifically discussed possibility and signs of hypotension; will address need for f/u psychotherapy with social work service [facility] 5: No changes in medication. Discharge planning initiated Involuntary Hold Information 96 Hour Hold: 96 Hour Involuntary Admission: No Mental Status Exam MSE Comments: Mental Status Exam: Patient is alert and gave female appearing approximately her stated age. Information presented is internally consistent and that generally supported by that in the chart. Appearance: hygiene is Good; no gross neurological deficits., gait is unremarkable; AIMS=0 Speech: Speech is of normal rate and rhythm and easily understood. Thought processes: Thought processes are abstract. Judgment is adequate for safety. Associations: intact Psychotic processes: There is no indication of guarding or paranoia. There is no attention to the internal stimuli. Auditory and visual hallucinations are denied. Judgment: Insight is Good. Problem solving skills are adequate for safety. Orientation: The patient is oriented to person, place time and situation. Memory: no deficits noted in immediate, intermediate, or remote spheres. Attention: The patient is alert and interpersonally engaged. Language: Verbalizations are coherent. Fund of knowledge: Fund of knowledge is adequate. Affect/Mood: Affect is consistent with a euthymic mood. She denied suicidal ideation; no intent or plan at this time.Affective range is good . Psychosis: perception unimpaired except through cognitive distortion; reality testing intact Discharge Data Data Completed and Pending: Completed Studies During Hospitalization Category Date Time Status XR chest 1V melinda ble [id number] Urgent Exams 08/18/19 19:04 Completed Vitals: Last Vital Signs Temp 97.9 F 08/24/19 15:12 Pulse 81 08/24/19 15:12 Resp 17 08/24/19 15:12 BP 105/71 08/24/19 15:12 Pulse Ox 98 08/24/19 15:12 Discharge Plan Discharge Patient Disposition: Home, Self-Care Condition: Stable Prescriptions: New prazosin 1 mg Capsule 1 mg PO BEDTIME 30 Days Qty: 30 RF: 2 imipramine HCl 25 mg Tablet 100 mg PO BEDTIME Qty: 30 RF: 2 hydroxyzine pamoate 25 mg Capsule 25 mg PO Q6H PRN (Reason: Anxiety) Qty: 60 RF: 2 Suboxone 4-1 mg Film 1 ea sublingual DAILY Qty: 15 RF: 0 Discontinued buprenorphine-naloxone [Suboxone] 2-0.5 mg Film 1 film BUCCAL DAILY RF: 0 Discharge Orders: Discharge Order (Routine); Ordered 08/24/19 Ordered By: Lucas Thomas Referrals: Vandana Chambers FNP [Family Provider] - Activity Restrictions/Additional Instructions: Hours: Thursday-, 8 a.m. to 8 p.m. Thursday, 8 a.m. to 5 p.m. [facility] [place] [phone] [facility] [place] [address] Social Setting Detox This program is designed for those who have used drugs in the past 72 hours or who are in active withdrawal and need help with the detoxification process Medication Assisted Treatment, including [facility] for Opioid Use Disorder Medication treatment for substance use disorders is a proven, effective treatment. [facility] for opioid use disorders, along with psychosocial treatment, has been shown to increase treatment retention, and to reduce opioid use, opioid overdoses, risk behaviors and . Get Started Call our [facility] appointment line, to make an appointment and to learn where services are available. [facility] treatment and substance-use therapy are now available in our [facility], based in [place]. Please call [phone] to inquired about treatment. You do not need to visit our Walk-in clinic before scheduling an appointment. [facility] Contact them as early as possible. If you are at risk of becoming homeless or currently without a safe, stable place to stay, please call [phone] or visit us at the [facility], [facility]. One of the [facility] service coordinators will meet with you to help identify resources and options that may meet your individual needs. Hours of Operation: Thursday: 9am ? 5pm Thursday: 9am ? noon and 1pm ? 5pm Thursday: 9am ? 5pm : 10am ? 5pm Thursday: 9am ? 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
== END 2019-08-24 15:12 | disposition home or self-care (01) | DRG 881 ==
LOC: ER 17:56 → NP 21:06
PROVIDERS: Admitting Provider Psychiatry & Neurology Psychiatry; Emergency Provider Physician Assistant; Family Provider Nurse Practitioner Family; Visit Provider Psychiatry & Neurology Psychiatry
DX: F32.9 Major depressive disorder, single episode, unspecified (principal); R45.851 Suicidal ideations; F17.210 Nicotine dependence, cigarettes, uncomplicated
CPT/HCPCS: 12345; 71045; 80048; 80053; 80307; 81003; 81025; 84443; 85025; 85610; 99284; J0573

== ENCOUNTER 2020-10-14 23:03 | Emergency (ER) | payer SELFPAY ==
[2020-10-14 23:18] VITALS: BP 125/89; PULSE 99; RESP 17; TEMP 36.8; O2SAT 98; BMI 18.5
--- NOTE | 2020-10-14 23:40 | W.ED.HA ---
HPI - Headache General: Chief Complaint: Headache Stated Complaint: migraine Time Seen by Provider: 10/14/20 23:39 Source: patient Mode of arrival: ambulatory Limitations: no limitations History of Present Illness: HPI Narrative: Patient comes in today with complaints of migraine headache. Patient has a history of migraine headaches and this reminds her of her usual headache. Patient has not had a migraine headache in over 1 year. Patient in the past has had to use Topamax for prevention but has been not been taking it for the last year. Patient is on Suboxone for pain management. Patient appears well. Patient appears in moderate pain. No obvious focal neural deficits, without any weakness or facial drooping. MD elicited complaint: headache and migraine Review of Systems General: Reports: 10 or more systems reviewed and unremarkable except in HPI and below Neuro: Reports: headache(s) PFSH ED PFSH: Social History Smoking and tobacco status: current every day smoker Female Reproductive History: Date of last menstrual period: 10/01/20 Physical Exam Const: COMMON NORMALS: no acute distress and patient oriented x3 GENERAL APPEARANCE: cooperative HENMT: COMMON NORMALS: normocephalic, TM's normal bilaterally and Normal external nose present HEAD & SCALP: normal to inspection and normocephalic NOSE: Normal external nose present TYMPANIC MEMBRANE: TM's normal bilaterally MOUTH: Normal oral and palatal mucosa present THROAT: posterior oropharynx normal Eye: GENERAL EYE: appearance normal, both eyes and all related structures Neck/C-Spine: COMMON NORMALS: full ROM Lymph: LYMPHATIC: no lymphadenopathy noted Chest: COMMONS NORMALS: normal inspection of the chest Resp: COMMON NORMALS: normal respiratory effort EFFORT & INSPECTION: Yes able to speak in complete sentences Cardio: COMMON NORMALS: regular rate and regular rhythm RATE: regular rate RHYTHM: regular rhythm GI: COMMON NORMALS: non-tender Back/Pelvis: COMMON NORMALS: thoracic and lumbar spine normal to inspection Extremity: COMMON NORMALS: normal to inspection Neuro: COMMON NORMALS: patient oriented x3 and moves all extremities Psych: COMMON NORMALS: mental status grossly normal and cooperative Skin: COMMON NORMALS: no rashes or lesions noted GENERAL SKIN EXAM: no rashes or lesions noted Course Vital Signs: Vital signs: Vital Signs Temperature 98.2 F 10/14/20 23:18 Pulse Rate 93 10/15/20 01:14 Respiratory Rate 18 10/15/20 01:14 Blood Pressure 129/82 10/15/20 01:14 Pulse Oximetry 98 10/15/20 01:14 MDM - Headache MDM Narrative: Medical decision making narrative: Patient comes in today with complaints of a migraine headache. Patient does have a history of migraine headaches. On exam there is no focal neural deficits, no facial drooping, no speech changes, no weakness. Differential diagnosis includes tension headache, migraine headache, malingering. Patient was medicated with 10 mg of Reglan and 12-1/2 mg of diphenhydramine per IV with 500 mL of saline. Patient had resolution of headache and wished to go home after 30 minutes of medication administration. Reviewed recommendations for follow-up and for preventative medications of headache. Patient will follow up with primary care. Discharge Plan Discharge Patient Disposition: Home Clinical Impression: Migraine Qualifiers: Migraine type: unspecified Status migrainosus presence: without status migrainosus Intractability: not intractable Qualified Code(s): G43.909 - Migraine, unspecified, not intractable, without status migrainosus Condition: Stable Prescriptions: No Action prazosin 1 mg Capsule 1 mg PO BEDTIME 30 Days Qty: 30 RF: 2 imipramine HCl 25 mg Tablet 100 mg PO BEDTIME Qty: 30 RF: 2 hydroxyzine pamoate 25 mg Capsule 25 mg PO Q6H PRN (Reason: Anxiety) Qty: 60 RF: 2 Suboxone 4-1 mg Film 1 ea sublingual DAILY Qty: 15 RF: 0 Discharge Orders: Discharge ED (Routine); Ordered 10/15/20 Ordered By: Hira Perez Referrals: MARCE Chambers, MAGNETIC TAPE TYPEWRITER OPERATOR [Primary Care Provider] - Discharge Diet: Usual diet Discharge Activity: Increase activity as tolerated Patient Instructions: Migraine Headache (ED), Opioid Safety Activity Restrictions/Additional Instructions: Drink plenty of water. Take medications as prescribed. Follow-up with primary care for further treatment and any preventative recommendations for migraines. Return to the emergency department for new concerns. 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
[2020-10-15] MEDS: diphenhydrAMINE 50 mg/mL SDV 1mL 12.5 MG IVP (00:41)
[2020-10-15] MEDS: metoclopramide 5 mg/mL SDV 2 mL 10 MG IVP (00:41)
[2020-10-15] MEDS: sodium chloride 0.9% 500 ML 999 ML IV (00:42)
[2020-10-15 01:14] VITALS: BP 129/82; PULSE 93; RESP 18; O2SAT 98
[2020-10-15 02:11] VITALS: BP 102/76; PULSE 90; RESP 18; O2SAT 99
== END 2020-10-15 02:12 | disposition home or self-care (01) ==
PROVIDERS: Emergency Provider Nurse Practitioner Family; PCP Nurse Practitioner Family
DX: G43.909 Migraine, unspecified, not intractable, without status migrainosus (principal); F17.210 Nicotine dependence, cigarettes, uncomplicated
CPT/HCPCS: 96374; 96375; 99283; J1200; J2765; J7040

== ENCOUNTER 2020-12-17 11:27 | Inpatient (IN) | payer SELFPAY ==
[2020-12-17 11:29] VITALS: BP 143/94; PULSE 106; RESP 18; TEMP 37; O2SAT 100; BMI 20.7
--- NOTE | 2020-12-17 11:49 | W.ED.PSYCH ---
HPI - Psych General: Chief Complaint: Psychiatric Symptoms Stated Complaint: psych symptoms Time Seen by Provider: 12/17/20 11:31 Source: patient and family () Mode of arrival: ambulatory Limitations: no limitations History of Present Illness: HPI Narrative: Patient is a 40-year-old female with a history of depression, opioid addiction, who has been having worsening depression. She has been off her antidepressants for about a year because she lost her insurance and due to financial issues. About 6 months ago she attempted suicide by trying to hang herself but her found her. She denies actual suicide ideation now but she says she wishes she was . She has tried to get an appointment at [facility] [place] but she was told that they will contact her in 3 weeks to schedule an appointment. She is feeling hopeless and helpless and would like some help. She admits to an opioid addiction, and states that she buys suboxone from the street in an attempt to be off opioids. complaint: feels depressed Onset (ago): month(s) Duration: constant and getting worse History of same: Yes Relieving factors: none Exacerbating factors: none Associated psychiatric symptoms: depression Associated symptoms: Reports depression; Deny auditory hallucinations, visual hallucinations, delusions, homicidal ideation, suicidal ideation or racing thoughts Treatments prior to arrival: none Review of Systems General: Reports: 10 or more systems reviewed and unremarkable except in HPI and below Psych: Reports: depression; Denies: visual hallucinations, auditory hallucinations, suicidal ideation or homicidal ideation [facility] ED PFSH: Social History (Reviewed 12/17/20 @ 12:02 by Georgia Fishman MD, [facility] [place]) Smoking and tobacco status: current every day smoker Female Reproductive History: Date of last menstrual period: 10/01/20 Physical Exam Const: COMMON NORMALS: no acute distress, average body habitus, patient oriented x3, no limitations, healthy appearing, alert and well nourished HENMT: COMMON NORMALS: normocephalic, atraumatic and moist oral mucous membranes HEAD & SCALP: normocephalic and atraumatic TEETH & GINGIVA: Yes abnormal tooth and associated gingiva upper right second molar tender and with associated gingival edema and Yes caries Neck/C-Spine: COMMON NORMALS: no meningeal signs and no JVD Resp: COMMON NORMALS: normal respiratory effort, No retractions, No use of accessory muscles, clear to auscultation bilaterally and percussion normal AUSCULTATION: clear to auscultation bilaterally PERCUSSION: percussion normal Cardio: COMMON NORMALS: no JVD, regular rate, regular rhythm, S1 normal heart sound present, S2 normal heart sound present, No gallops present (Cardio), No clicks present (Cardio), No murmurs present (Cardio), No rub (Cardio) and Peripheral pulses 2+ throughout RATE: regular rate RHYTHM: regular rhythm HEART SOUNDS: S1 normal heart sound present and S2 normal heart sound present PERIPHERAL PULSES: Peripheral pulses 2+ throughout GI: COMMON NORMALS: Normal to inspection, nondistended, normoactive bowel sounds present, Soft to palpation, non-tender, No hepatosplenomegaly present, no masses and no bruits PALPATION: Yes Soft to palpation and Yes No hepatosplenomegaly present Extremity: COMMON NORMALS: normal to inspection, full ROM, capillary refill normal, no calf tenderness and no pedal edema Neuro: COMMON NORMALS: patient oriented x3 SENSORIUM/ORIENTATION: Yes alert MENINGEAL SIGNS: Yes no meningeal signs Psych: APPEARANCE: Yes grossly normal ATTITUDE: Yes Withdrawn affect present ACTIVITY/MOTOR BEHAVIOR: Yes psychomotor slowing SPEECH: Yes slow MOOD & AFFECT: Yes depressed mood THOUGHT CONTENT: No delusions Course Reevaluation(s): Reevaluation #1: Discussed her lab findings and my conversation with the psychiatrist. Advised hospital admission. I advised that she will be placed on a 96 hour hold. She voiced understanding and all questions answered. Time: 13:10 Consultations: Consultation #1: Discussed the patient with Dr. Hutchins, psychiatrist and he kindly accepted the patient to his service. Time: 13:02 Vital Signs: Vital signs: Vital Signs Temperature 98.6 F 12/17/20 20:02 Pulse Rate 102 H 12/17/20 20:02 Respiratory Rate 18 12/17/20 20:02 Blood Pressure 111/65 12/17/20 20:02 Pulse Oximetry 99 12/17/20 20:02 MDM - Psych MDM Narrative: Medical decision making narrative: 40-year-old female patient who presents to the emergency department with severe depression. She has a recent suicide attempt also a few months ago. She has not had any treatment since the suicide attempt. She also tested positive for methamphetamines, she admitted to buying Suboxone on the streets. With the meth, there are concerns for impulsive behavior and she is definitely at risk for suicide. She is therefore admitted to the neuropsychiatric unit for further evaluation and management. Medical Records: Attestation: I reviewed the patient's medical records. Lab Data: Attestation: I reviewed the patient's lab results. Labs: Lab Results 12/17/20 12/17/20 12/17/20 Range/Units 11:40 11:40 11:40 WBC (4.0-10.0) 10^3/ uL RBC (4.1-5.3) 10^6/u L Hgb (11.5-15.3) g/dL Hct (37.0-47.0) % MCV (81-99) fL MCH (28.0-34.0) pg MCHC (30.0-36.0) g/dL RDW (12.1-15.1) % Plt Count (130-400) 10^3/c mm MPV (7.4-10.4) fL Neut % (Auto) % Lymph % (Auto) % Larimer % (Auto) % Eos % (Auto) % Baso % (Auto) % Neut # (Auto) (1.8-7.7) 10^3/u L Lymph # (Auto) (0.8-4.8) 10^3/u L Larimer # (Auto) (0.2-0.9) 10^3/u L Eos # (Auto) (0.0-0.8) 10^3/u L Baso # (Auto) (0.0-0.1) 10^3/u L Nucleated RBC % (a uto) % Nucleated RBCs # /100WBC Sodium (136-145) mmol/L Potassium (3.5-5.1) mmol/L Chloride (98-107) mmol/L Carbon Dioxide (22-29) mmol/L Anion Gap (5-19) BUN (6-20) mg/dL Creatinine (0.5-0.9) mg/dL GFR Calculation (90-130) mL/min Glucose (65-115) mg/dL Calculated Osmolal ity (285-295) mOsm/k g Calcium (8.5-10.5) mg/dL Total Bilirubin (0.15-1.2) mg/dL AST (0-32) U/L ALT (0-33) U/L Alkaline Phosphata se (35-105) IU/L Total Protein (6.6-8.7) g/dL Albumin (3.5-5.2) g/dL Globulin (1.3-4.6) g/dL TSH (0.27-4.20) uIU/ mL HCG, Qual Negative (Negative) Urine Color Yellow (Yellow) Urine Appearance Hazy A (CLEAR) Urine pH 9 H (5-7) Ur Specific Gravit y 1.010 (1.005-1.030) Urine Protein Neg (Negative) Urine Glucose (UA) Norm (Normal) Urine Ketones Negative (Negative) Urine Blood Neg (Negative) Urine Nitrate Negative (Negative) Urine Bilirubin Neg (Negative) Prot Sulfosalicyli c Acd Negative (Negative) Urine Urobilinogen Norm (Negative) mg/dL Ur Leukocyte Marily ase Trace H (Negative) Urine RBC 0-4 H (0-2) /hpf Urine WBC 10-15 H (0-5) /hpf Ur Squamous Epith Cells 10-15 H (0-5) /hpf Amorphous Sediment Not Reportable Urine Bacteria 2+ H (NONE) /hpf Urine Mucus 1+ /hpf Salicylates (3-10) mg/dL Urine Opiates Scre en Negative (Negative) ng/mL Acetaminophen (10-30) ug/mL Ur Barbiturates Sc reen Negative (Negative) ng/mL Ur Phencyclidine S crn Negative (Negative) ng/mL Ur Amphetamines Sc reen Positive H (Negative) ng/mL U Benzodiazepines Scrn Negative (Negative) ng/mL Urine Cocaine Scre en Negative (Negative) ng/mL U Marijuana (THC) Screen Positive H (Negative) ng/mL Ethyl Alcohol (0-10) mg/dL 12/17/20 12/17/20 Range/Units 11:58 11:58 WBC 10.0 (4.0-10.0) 10^3/ uL RBC 4.07 L (4.1-5.3) 10^6/u L Hgb 11.6 (11.5-15.3) g/dL Hct 36.2 L (37.0-47.0) % MCV 88.9 (81-99) fL MCH 28.5 (28.0-34.0) pg MCHC 32.0 (30.0-36.0) g/dL RDW 14.5 (12.1-15.1) % Plt Count 379 (130-400) 10^3/c mm MPV 8.6 (7.4-10.4) fL Neut % (Auto) 68.0 % Lymph % (Auto) 19.9 % Larimer % (Auto) 6.2 % Eos % (Auto) 5.1 % Baso % (Auto) 0.4 % Neut # (Auto) 6.81 (1.8-7.7) 10^3/u L Lymph # (Auto) 2.0 (0.8-4.8) 10^3/u L Larimer # (Auto) 0.6 (0.2-0.9) 10^3/u L Eos # (Auto) 0.5 (0.0-0.8) 10^3/u L Baso # (Auto) 0.0 (0.0-0.1) 10^3/u L Nucleated RBC % (a uto) 0 % Nucleated RBCs # 0.0 /100WBC Sodium 139 (136-145) mmol/L Potassium 3.4 L (3.5-5.1) mmol/L Chloride 105 (98-107) mmol/L Carbon Dioxide 27 (22-29) mmol/L Anion Gap 10.4 (5-19) BUN 11 (6-20) mg/dL Creatinine 0.5 (0.5-0.9) mg/dL GFR Calculation 137.4 H (90-130) mL/min Glucose 81 (65-115) mg/dL Calculated Osmolal ity 286 (285-295) mOsm/k g Calcium 7.7 L (8.5-10.5) mg/dL Total Bilirubin 0.2 (0.15-1.2) mg/dL AST 12 (0-32) U/L ALT 13 (0-33) U/L Alkaline Phosphata se 105 (35-105) IU/L Total Protein 6.2 L (6.6-8.7) g/dL Albumin 3.6 (3.5-5.2) g/dL Globulin 2.6 (1.3-4.6) g/dL TSH 0.61 (0.27-4.20) uIU/ mL HCG, Qual (Negative) Urine Color (Yellow) Urine Appearance (CLEAR) Urine pH (5-7) Ur Specific Gravit y (1.005-1.030) Urine Protein (Negative) Urine Glucose (UA) (Normal) Urine Ketones (Negative) Urine Blood (Negative) Urine Nitrate (Negative) Urine Bilirubin (Negative) Prot Sulfosalicyli c Acd (Negative) Urine Urobilinogen (Negative) mg/dL Ur Leukocyte Marily ase (Negative) Urine RBC (0-2) /hpf Urine WBC (0-5) /hpf Ur Squamous Epith Cells (0-5) /hpf Amorphous Sediment Urine Bacteria (NONE) /hpf Urine Mucus /hpf Salicylates < 0.3 L (3-10) mg/dL Urine Opiates Scre en (Negative) ng/mL Acetaminophen < 5.0 L (10-30) ug/mL Ur Barbiturates Sc reen (Negative) ng/mL Ur Phencyclidine S crn (Negative) ng/mL Ur Amphetamines Sc reen (Negative) ng/mL U Benzodiazepines Scrn (Negative) ng/mL Urine Cocaine Scre en (Negative) ng/mL U Marijuana (THC) Screen (Negative) ng/mL Ethyl Alcohol < 10 (0-10) mg/dL Discharge Plan Discharge Patient Disposition: Admitted As Inpatient Admit Provider: Dominic Hutchins Clinical Impression: Polysubstance abuse, Dental caries Depression Qualifiers: Depression Type: major depressive disorder Major depression recurrence: recurrent Active/Remission status: currently active Major depression episode severity: severe Psychotic features: without psychotic features Qualified Code(s): F33.2 - Major depressive disorder, recurrent severe without psychotic features Condition: Stable Coding Level of Care Code ED Ortho Assistant for [facility] Fwd Exam Comprehensive
[2020-12-17 12:02] LABS: HCG Qualitative Urine. Negative (Negative)
[2020-12-17 12:09] LABS: Basophils % 0.4 %; Eosinophils # 0.5 10^3/uL (0.0-0.8); Eosinophils % 5.1 %; Hematocrit 36.2 % (37.0-47.0); Hemoglobin 11.6 g/dL (11.5-15.3); Lymphocytes % 19.9 %; Mean Corpuscular Hemoglobin 28.5 pg (28.0-34.0); Mean Corpuscular Volume 88.9 fL (81-99); Mean Platelet Volume 8.6 fL (7.4-10.4); Monocytes # 0.6 10^3/uL (0.2-0.9); Monocytes % 6.2 %; Neutrophils # 6.81 10^3/uL (1.8-7.7); Nucleated Red Blood Cells % 0 %; Platelet Count 379 10^3/cmm (130-400); Red Blood Count 4.07 10^6/uL (4.1-5.3); Red Cell Distribution Width 14.5 % (12.1-15.1)
[2020-12-17 12:10] LABS: Amphetamines Screen Urine Positive (Negative); Barbiturates Screen Urine Negative (Negative); Benzodiazepines Screen Urine Negative (Negative); Cocaine Screen Urine Negative (Negative); Opiate Screen Urine Negative (Negative); PCP Screen Urine Negative (Negative); Protein Urine Neg (Negative); THC Screen Urine Positive (Negative); Urine Appearance Hazy (CLEAR); Urine Color Yellow (Yellow); pH Urine 9 (5-7)
[2020-12-17 12:11] LABS: Add Urine Microscopic? YES; Bilirubin Urine Neg (Negative); Blood Urine Neg (Negative); Glucose Urine UA Norm (Normal); Ketones Urine Negative (Negative); Leukocyte Esterase Urine Trace (Negative); Nitrate Urine Negative (Negative); Sulfosalicylic Acid Urine Negative (Negative); Urobilinogen Urine Norm (Negative)
[2020-12-17 12:12] LABS: RBC Urine 0-4 /hpf (0-2)
[2020-12-17 12:13] LABS: Add Urine Culture? No; Bacteria Urine 2+ /hpf; Mucus Urine 1+ /hpf
[2020-12-17 12:45] LABS: Alanine Aminotransferase 13 U/L (0-33); Albumin Level 3.6 g/dL (3.5-5.2); Alkaline Phosphatase 105 IU/L (35-105); Anion Gap 10.4 (5-19); Aspartate Amino Transferase 12 U/L (0-32); Blood Urea Nitrogen 11 mg/dL (6-20); Calcium 7.7 mg/dL (8.5-10.5); Carbon Dioxide 27 mmol/L (22-29); Chloride 105 mmol/L (98-107); Globulin 2.6 g/dL (1.3-4.6); Glomerular Filtration Rate 137.4 mL/min (90-130); Glucose 81 mg/dL (65-115); Osmolality Calculated 286 mOsm/kg (285-295); Potassium 3.4 mmol/L (3.5-5.1); Sodium 139 mmol/L (136-145); Thyroid Stimulating Hormone 0.61 uIU/mL (0.27-4.20); Total Bilirubin 0.2 mg/dL (0.15-1.2); Total Protein 6.2 g/dL (6.6-8.7)
[2020-12-17 12:46] LABS: Acetaminophen < 5.0 ug/mL (10-30); Salicylate < 0.3 mg/dL (3-10)
[2020-12-17 12:47] LABS: Alcohol Level < 10 mg/dL (0-10)
[2020-12-17] MEDS: amoxicillin 500 mg Capsule PO ×2 (13:16→17:02)
[2020-12-17] MEDS: nicotine 21 mg Patch 1 PATCH TRANSDERMA (13:16)
[2020-12-17 13:50] VITALS: BP 140/88; PULSE 88; RESP 17; O2SAT 100
--- NOTE | 2020-12-17 13:50 | PC.NURSE ---
pt report called to Renita BARRIENTOS in NPU in SBAR format.
[2020-12-17 14:00] VITALS: BP 126/87; PULSE 102; RESP 12; TEMP 37.1; O2SAT 98
[2020-12-17] MEDS: lidocaine 2% viscous 15 mL UDC 5 ML MUCOUS MEM (14:01)
[2020-12-17] MEDS: acetaminophen 325 mg Tablet 650 MG PO (16:59)
[2020-12-17] MEDS: ondansetron 4 MG Tablet PO (17:00)
[2020-12-17] MEDS: OLANZapine 5 mg ODT PO (18:02)
[2020-12-17 20:02] VITALS: BP 111/65; PULSE 102; RESP 18; TEMP 37; O2SAT 99
[2020-12-17] MEDS: trazodone 50 mg Tablet PO (20:10)
--- NOTE | 2020-12-17 20:11 | PC.NURSE ---
pt came to nurses desk requesting sleep aide. trazodone 50mg po given.
--- NOTE | 2020-12-17 21:00 | PC.NURSE ---
pt resting quietly in her room with both eyes closed.
[2020-12-18] MEDS: hyDROXYzine 25 mg Capsule 50 MG PO ×2 (02:43→15:19)
[2020-12-18] MEDS: acetaminophen 325 mg Tablet 650 MG PO ×4 (02:43→23:40)
[2020-12-18 06:00] VITALS: BP 119/79; PULSE 100; RESP 18; TEMP 36.9; O2SAT 95
[2020-12-18] MEDS: amoxicillin 500 mg Capsule PO ×2 (08:22→17:19)
--- NOTE | 2020-12-18 10:44 | PM.NHP ---
Providers/Chief Complaint Admitting Physician: Dominic Hutchins DO Primary Care Provider: JOHN Moya Chief Complaint: psych symptoms HPI NPU History of Present Illness Janice Christopher is a 40 year old female with longstanding history of opioid dependence, polysubstance abuse with positive urine drug screen for methamphetamine and cannabis as well as history of PTSD presenting to the emergency department with complaint of worsening depressive symptoms being off of her antidepressant for several months and reported suicidal gesture 6 months ago of attempting to hang herself with a rope prior to her finding her. Patient states that that was not a suicide attempt and only a gesture with no actual intent of wanting to end her life which she has previously reported during mental health encounters. She currently denies any suicidal ideation but does report intermittent depressive symptoms to include low mood, decreased energy or interest in her usual activities. Patient also reports having anxiety symptoms which she states are exacerbated by withdrawing from opioids or Suboxone. She reports seeing [facility] last week for an intake but has not been able to get in for medication management appointment. She reports recent use of methamphetamine and cannabis but states that she only used because she was unable to get Suboxone although she does report occasionally getting Suboxone off of the street and using it. Patient has a history of PTSD with longstanding history of trauma throughout her childhood but currently denies any PTSD symptoms. She denies any past or recent hypomanic or manic episodes. She denies any perceptual disturbances, denies any delusions. Psychiatric review of systems is otherwise negative. Patient reports that her appetite is fair and states that she has always been a picky eater but, of note, patient in previous notes also reports reports of having a cramping stomach and poor appetite despite perpetually either using stimulants or methamphetamine. She reports having a headache although also reports other withdrawal symptoms of stomach cramping, loose stools, difficulty with sleep. Patient reports that she and her recently got a camper to live in. Review of Systems General: Reports: 10 or more systems reviewed and unremarkable except in HPI and below Meds NPU Home Medications Medication Instructions Recorded Confirmed Last Taken Type acetaminophen [Tylenol Extra 1,000 mg PO PRN 12/17/20 12/17/20 12/17/20 09:00 History Strength] benzocaine-phenol [Anbesol] 1 ea MUCOUS MEMBRANE PRN 12/17/20 12/17/20 Unknown History buprenorphine-naloxone [Suboxone] 1 film SUBLINGUAL DAILY 12/17/20 12/17/20 12/15/20 History ibuprofen 800 mg PO PRN 12/17/20 12/17/20 Unknown History Allergies Allergy/AdvReac Type Severity Reaction Status Date / Time No Known Allergies Allergy Verified 12/17/20 12:11 PFSH NPU PFSH: Social History Smoking and tobacco status: current every day smoker Other Psychiatric History: Other Psychiatric History: Reports previously seeing the [facility] for outpatient therapy and medication management Reports past psychiatric hospitalization in August 2019 under similar circumstances Reports multiple past suicide attempts and self-harm behavior Mental Status Exam MSE Comments: Appears stated age, tired appearing, disheveled, unkempt, appropriately dressed in hospital scrubs, calm, cooperative, interactive, good eye contact Psychomotor activity is neither increased nor decreased, no agitation Speech is normal rate and volume, spontaneous, clear articulation, not pressured I feel horrible, congruent affect, not labile Alert and oriented to person, place, time, situation Memory and concentration appear to be intact per interview Intellectual functioning appears to be average based on vocabulary, interview Thought process, linear, no flight of ideas, no looseness of associations Thought content, no delusions, no hallucinations, no suicidal or homicidal ideation Insight and judgment appear to be fair Vitals/I&O/Wt Last Vital Signs Temp 98.5 F 12/18/20 06:00 Pulse 100 12/18/20 06:00 Resp 18 12/18/20 06:00 BP 119/79 12/18/20 06:00 Pulse Ox 95 12/18/20 06:00 Weight last 48 hrs Weight 49.895 kg Data NPU : 12/17/20 11:58 12/17/20 11:58 A&P Assessment and plan (1) Depression: Status: Acute Qualifiers: Active/Remission status: currently active Depression Type: major depressive disorder Major depression episode severity: severe Major depression recurrence: recurrent Psychotic features: without psychotic features Qualified Code(s): F33.2 - Major depressive disorder, recurrent severe without psychotic features (2) Polysubstance abuse: Status: Acute (3) Cannabis abuse: Status: Acute (4) Methamphetamine abuse: Status: Acute (5) Opioid dependence: Status: Acute Qualifiers: Substance use status: in withdrawal Qualified Code(s): F11.23 - Opioid dependence with withdrawal Additional A&P Information Patient presented to the emergency department with complaint of depressive symptoms and opioid withdrawal with history of recent suicidal gesture although currently denying any suicidal ideation. Patient states that she had been off her medication for a while and had previously been started by another psychiatrist on Suboxone during previous admission, so unclear if patient was seeking being placed on Suboxone during hospitalization despite going a long period of time off of any psychotropic medication. Patient would benefit from restarting antidepressant with symptomatic treatment of opioid withdrawal symptoms while coordinating for post discharge substance treatment. INVOLUNTARY ADMIT to inpatient psychiatry START citalopram 10 mg daily targeting mood, anxiety symptoms START prazosin 1 mg at bedtime for nightmares Encouraged patient to participate in unit activities to include group sessions, unit milieu Involuntary Hold Information 96 Hour Hold: 96 Hour Involuntary Admission: Yes 96 Hour Hold Ending Date: 12/21/20 96 Hour Hold Ending Time: 13:30 Attestations NPU Medical Necessity Statement*: Psychiatric hospitalization indicated for medication stabilization, coordination for safe discharge Anticipate hospital stay to exceed 2 midnights Time Spent in Patient Care: Greater than 35 minutes (>than 50% of time spent in counselling and/or direct pt care on unit). 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
[2020-12-18] MEDS: citalopram 20 mg Tablet 10 MG PO (11:07)
[2020-12-18] MEDS: benzocaine 20% 7 gm 1 APPLIC MUCOUS MEM (12:31)
[2020-12-18 13:27] VITALS: BP 127/71; PULSE 108; RESP 16; TEMP 37.2; O2SAT 96
--- NOTE | 2020-12-18 15:37 | PC.NURSE ---
PRN MED PT GIVEN 50 MG VISTARIL FOR STATED ANXIETY, O S/S OF ANXIETY, WILL CONTINUE TO MONITOR.
[2020-12-18] MEDS: nicotine 2 mg Gum BUCCAL (19:07)
[2020-12-18] MEDS: prazosin 1 mg Capsule PO (19:07)
[2020-12-18] MEDS: trazodone 50 mg Tablet PO (19:09)
--- NOTE | 2020-12-18 19:10 | PC.NURSE ---
pt came to desk requesting tylenol for tooth pain and her sleeping pill . tylenol 650mg po given for pain and trazodone 50mg po given for sleep.
[2020-12-18 19:49] VITALS: BP 115/70; PULSE 102; RESP 18; TEMP 36.4; O2SAT 97
--- NOTE | 2020-12-18 20:00 | PC.NURSE ---
pt resting quietly in room with both eyes closed.
[2020-12-18] MEDS: OLANZapine 5 mg ODT PO (23:40)
--- NOTE | 2020-12-18 23:40 | PC.NURSE ---
pt came to desk stating that the trazodone that was given to her earlier wasn't working. requested something else to get rid of her head and facel pain. that the pain keeps waking her up. Tylenolo 650mg po given for pain, and zyprexa 5mg given for increased anxiety related to her pain.
[2020-12-19 06:00] VITALS: BP 120/74; PULSE 105; RESP 18; TEMP 36.9; O2SAT 96
[2020-12-19] MEDS: acetaminophen 325 mg Tablet 650 MG PO ×3 (08:30→22:23)
[2020-12-19] MEDS: amoxicillin 500 mg Capsule PO ×2 (08:30→19:38)
[2020-12-19] MEDS: citalopram 20 mg Tablet 10 MG PO (08:30)
--- NOTE | 2020-12-19 10:27 | P.PN_ITS ---
Subjective NPU Subjective: Interval history: Reports feeling tired and having a headache Reports some improving mood symptoms, continues to report some anxiety Denies any interval suicidal ideation Reports that her appetite is been improving Reports improving sleep Mental Status Exam MSE Comments: Lying in bed, tired appearing, calm, cooperative, interactive, good eye contact Psychomotor activity is neither increased nor decreased, no agitation Speech is normal rate and volume, spontaneous, clear articulation, not pressured I feel tired, congruent affect, not labile Alert and oriented to person, place, time, situation Memory and concentration appear to be intact per interview Thought process, linear, no flight of ideas, no looseness of associations Thought content, no delusions, no hallucinations, no suicidal or homicidal ideation Insight and judgment appear to be fair Vitals/I&O/Wt Last Vital Signs Temp 98.5 F 12/19/20 06:00 Pulse 105 H 12/19/20 06:00 Resp 18 12/19/20 06:00 BP 120/74 12/19/20 06:00 Pulse Ox 96 12/19/20 06:00 Weight last 48 hrs Weight 49.895 kg Data NPU : 12/17/20 11:58 12/17/20 11:58 A&P Assessment and plan (1) Depression: Status: Acute Qualifiers: Active/Remission status: currently active Depression Type: major depressive disorder Major depression episode severity: severe Major depression recurrence: recurrent Psychotic features: without psychotic features Qualified Code(s): F33.2 - Major depressive disorder, recurrent severe without psychotic features (2) Polysubstance abuse: Status: Acute (3) Opioid dependence: Status: Acute Qualifiers: Substance use status: in withdrawal Qualified Code(s): F11.23 - Opioid dependence with withdrawal (4) Methamphetamine abuse: Status: Acute (5) Cannabis abuse: Status: Acute Additional A&P Information Improving mood INCREASE to citalopram 20 mg daily targeting depressive, anxiety symptoms Coordinate with social studies department chair for post discharge substance treatment/counseling, mental health care Involuntary Hold Information 96 Hour Hold: 96 Hour Involuntary Admission: Yes 96 Hour Hold Ending Date: 12/21/20 96 Hour Hold Ending Time: 13:30 Attestations NPU Medical Necessity Statement*: Continues to require psychiatric hospitalization for medication stabilization, coordination for safe discharge Coding Level of Care Code 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
[2020-12-19 14:00] VITALS: BP 126/73; PULSE 107; RESP 16; TEMP 37.1; O2SAT 94
[2020-12-19] MEDS: hyDROXYzine 25 mg Capsule 50 MG PO ×2 (14:36→19:37)
--- NOTE | 2020-12-19 14:38 | PC.NURSE ---
Addendum entered by Dae Castro RN 12/19/20 15:35: PRN MED RT WITH O S/S OF DISTRESS, WILL CONTINUE TO MONITOR. Original Note: PRN MED PT GIVEN 50MG VISTARIL FOR ANXIETY, PT UPSET WANTING TO GO HOME IN THE MORNING, WILL CONTINUE TO MONITOR.
[2020-12-19] MEDS: nicotine 2 mg Gum BUCCAL (15:22)
[2020-12-19] MEDS: prazosin 1 mg Capsule PO (19:38)
[2020-12-19 19:51] VITALS: BP 114/71; PULSE 128; RESP 18; TEMP 37.2; O2SAT 94
[2020-12-20] MEDS: OLANZapine 5 mg ODT PO (00:21)
[2020-12-20] MEDS: ibuprofen 600 mg Tablet PO ×2 (00:28→21:52)
[2020-12-20 06:00] VITALS: BP 132/85; PULSE 108; RESP 15; TEMP 36.7; O2SAT 96
[2020-12-20] MEDS: amoxicillin 500 mg Capsule PO ×2 (09:03→21:24)
[2020-12-20] MEDS: citalopram 20 mg Tablet PO (09:03)
[2020-12-20] MEDS: acetaminophen 325 mg Tablet 650 MG PO (11:59)
[2020-12-20 14:00] VITALS: BP 123/79; PULSE 108; RESP 20; TEMP 37.3; O2SAT 94
[2020-12-20] MEDS: hyDROXYzine 25 mg Capsule 50 MG PO ×2 (14:15→21:52)
--- NOTE | 2020-12-20 14:16 | PC.NURSE ---
PRN Vistaril Patient reports increased anxiety after phone call with significant other. Patient requesting Vistaril. Vistaril 50mg PO given at this time.
--- NOTE | 2020-12-20 16:39 | PC.RESP ---
SMOKING CESSATION INFORMATION SENT TO PATIENT.
--- NOTE | 2020-12-20 16:52 | PM.NPN ---
Subjective NPU Subjective: Interval history: Janice presents today reporting that she is tolerating the increase in the Celexa and the medications that were initiated by her and Dr. Hutchins. We discussed the possibility of discharge tomorrow if she continues to improve and certainly she is feeling like she will be ready to go the next couple days. She endorses eating and sleeping better. Mental Status Exam MSE Comments: This is a diminutive slender white female with hospital scrubs on with adequate grooming and eye contact. No abnormal movements except for mild psychomotor retardation. Cooperative with exam in no acute distress. Speech was slightly decreased rate and volume. Mood described as a little better affect slightly subdued. Thought process organized. Thought content: Patient denied suicidal or homicidal ideation, there were no delusions reported or noted, she denied any auditory visualizations. Attention and concentration were intact and memory appeared reliable but none were formally tested. She is alert and oriented x3. Insight and judgment appear fair and impulse control is improving. Vitals/I&O/Wt Last Vital Signs Temp 99.1 F 12/20/20 14:00 Pulse 108 H 12/20/20 14:00 Resp 20 H 12/20/20 14:00 BP 123/79 12/20/20 14:00 Pulse Ox 94 12/20/20 14:00 Data NPU : 12/17/20 11:58 12/17/20 11:58 A&P Assessment and plan (1) Depression: Status: Acute Qualifiers: Active/Remission status: currently active Depression Type: major depressive disorder Major depression episode severity: severe Major depression recurrence: recurrent Psychotic features: without psychotic features Qualified Code(s): F33.2 - Major depressive disorder, recurrent severe without psychotic features (2) Polysubstance abuse: Status: Acute (3) Opioid dependence: Status: Acute Qualifiers: Substance use status: in withdrawal Qualified Code(s): F11.23 - Opioid dependence with withdrawal (4) Methamphetamine abuse: Status: Acute (5) Cannabis abuse: Status: Acute (6) Dental caries: Status: Acute Additional A&P Information Is a 40-year-old white female with a long history of mental health and addiction issues who presents with active addiction off of medication and desiring treatment. 1. Continue current medication. 2. Continue every 15 minute checks for safety. 3. Encourage individual, group and milieu therapies. 4. Encourage sober living treatment after discharge at the highest level of care to which he is willing to commit. 5. Likely discharge in the next 48 hours. Involuntary Hold Information 96 Hour Hold: 96 Hour Involuntary Admission: Yes 96 Hour Hold Ending Date: 12/21/20 96 Hour Hold Ending Time: 13:30 Attestations NPU Medical Necessity Statement*: Inpatient hospitalization is medically necessary and the clinically appropriate intervention at this time. We will monitor medications and make changes as indicated. Likely length of stay 1 to 2 days. 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
[2020-12-20] MEDS: nicotine 2 mg Gum BUCCAL ×2 (18:07→21:24)
[2020-12-20] MEDS: prazosin 1 mg Capsule PO (21:24)
[2020-12-20 22:00] VITALS: BP 126/77; PULSE 94; RESP 18; TEMP 36.7; O2SAT 97
[2020-12-21] MEDS: trazodone 50 mg Tablet PO (00:01)
--- NOTE | 2020-12-21 03:05 | PC.NURSE ---
PRN's given Administered Vistaril 50mg PO for anxiety @ 2151 Reassessed @ 2300 pt is no longer pacing the hallways and asleep in her room, will continue to monitor until the end of my shift Administered Trazadone 50 mg PO for insomnia @ 0001 Reassessed pt at 0035 pt sleeping covered up in bed, will continue to monitor pt until end of my shift
[2020-12-21 06:00] VITALS: BP 116/67; PULSE 94; RESP 15; TEMP 36.7; O2SAT 99
[2020-12-21] MEDS: citalopram 20 mg Tablet PO (08:44)
[2020-12-21] MEDS: amoxicillin 500 mg Capsule PO (08:44)
[2020-12-21 09:44] VITALS: BP 116/67; PULSE 94; RESP 15; TEMP 36.7; O2SAT 99
--- NOTE | 2020-12-21 11:06 | PM.NDC ---
Diagnoses at Discharge Discharge Diagnosis (1) Depression: Status: Acute Qualifiers: Active/Remission status: currently active Depression Type: major depressive disorder Major depression episode severity: severe Major depression recurrence: recurrent Psychotic features: without psychotic features Qualified Code(s): F33.2 - Major depressive disorder, recurrent severe without psychotic features (2) Polysubstance abuse: Status: Acute (3) Opioid dependence: Status: Acute Qualifiers: Substance use status: in withdrawal Qualified Code(s): F11.23 - Opioid dependence with withdrawal (4) Methamphetamine abuse: Status: Acute (5) Cannabis abuse: Status: Acute (6) Dental caries: Status: Acute Reason for Visit Reason for Visit: psych symptoms Brief History: History of Present Illness Janice Christopher is a 40 year old female with longstanding history of opioid dependence, polysubstance abuse with positive urine drug screen for methamphetamine and cannabis as well as history of PTSD presenting to the emergency department with complaint of worsening depressive symptoms being off of her antidepressant for several months and reported suicidal gesture 6 months ago of attempting to hang herself with a rope prior to her finding her. Patient states that that was not a suicide attempt and only a gesture with no actual intent of wanting to end her life which she has previously reported during mental health encounters. She currently denies any suicidal ideation but does report intermittent depressive symptoms to include low mood, decreased energy or interest in her usual activities. Patient also reports having anxiety symptoms which she states are exacerbated by withdrawing from opioids or Suboxone. She reports seeing [facility] last week for an intake but has not been able to get in for medication management appointment. She reports recent use of methamphetamine and cannabis but states that she only used because she was unable to get Suboxone although she does report occasionally getting Suboxone off of the street and using it. Patient has a history of PTSD with longstanding history of trauma throughout her childhood but currently denies any PTSD symptoms. She denies any past or recent hypomanic or manic episodes. She denies any perceptual disturbances, denies any delusions. Psychiatric review of systems is otherwise negative. Patient reports that her appetite is fair and states that she has always been a picky eater but, of note, patient in previous notes also reports reports of having a cramping stomach and poor appetite despite perpetually either using stimulants or methamphetamine. She reports having a headache although also reports other withdrawal symptoms of stomach cramping, loose stools, difficulty with sleep. Patient reports that she and her recently got a camper to live in. Hospital Course Hospital Course Janice presented to the emergency department with significant active addiction issues, reported history of PTSD and depression reporting that she is been off of her medication. She was admitted to the neuropsychiatric unit for definitive treatment of those issues. On the unit she slowly acclimated to the individual, group and milieu therapies provided. She was started on Celexa and prazosin and the Celexa was titrated to 20 mg with a positive. Is able to contract for safety prior to discharge. During the hospitalization, patient had routine laboratory studies which were within normal limits except for few outliers. Additionally there was a general medical evaluation which was also within normal limits and revealed no new acute processes. Discharge Summary: At the time of discharge, she was absent psychosis and denied lethality. Mood and anxiety were well managed. Patient endorsed a plan to avoid all drugs of abuse and follow-up with the aftercare recommendations of the treatment team. Patient was evaluated and deemed to be absent credible lethality, and had achieved the maximum benefit from an inpatient hospitalization, so was discharged. Involuntary Hold Information 96 Hour Hold: 96 Hour Involuntary Admission: Yes 96 Hour Hold Ending Date: 12/21/20 96 Hour Hold Ending Time: 13:30 Mental Status Exam MSE Comments: This is a diminutive slender white female with hospital scrubs on with adequate grooming and eye contact. No abnormal movements except for mild psychomotor retardation. Cooperative with exam in no acute distress. Speech was more normal rate and volume. Mood described as better, affect brighter. Thought process organized. Thought content: Patient denied suicidal or homicidal ideation, there were no delusions reported or noted, she denied any auditory or visual hallucinations. Attention and concentration were intact and memory appeared reliable but none were formally tested. She is alert and oriented x3. Insight and judgment appear fair and impulse control is improving. Discharge Data Vitals: Last Vital Signs Temp 98.1 F 12/21/20 09:44 Pulse 94 12/21/20 09:44 Resp 15 12/21/20 09:44 BP 116/67 12/21/20 09:44 Pulse Ox 99 12/21/20 09:44 Discharge Plan Discharge Patient Disposition: Home Condition: Stable Prescriptions: New trazodone 50 mg Tablet 50 mg PO BEDTIME PRN (Reason: Insomnia) 30 Days Qty: 30 RF: 1 prazosin 1 mg Capsule 1 mg PO BEDTIME 30 Days Qty: 30 RF: 1 citalopram 20 mg Tablet 20 mg PO DAILY 30 Days Qty: 30 RF: 1 hydroxyzine pamoate 25 mg Capsule 50 mg PO Q6H PRN (Reason: Anxiety) 30 Days Qty: 120 RF: 1 Continued Tylenol Extra Strength 500 mg Tablet 1,000 mg PO PRN RF: 0 ibuprofen 200 mg Tablet 800 mg PO PRN RF: 0 benzocaine-phenol Gel 1 ea MUCOUS MEMBRANE PRN RF: 0 buprenorphine-naloxone [Suboxone] 8-2 mg Film 1 film sublingual DAILY RF: 0 Discharge Orders: Discharge Order (Routine); Ordered 12/21/20 Ordered By: Rashel Patton [place]: [facility] [place] - 01/08/21 9:30 am (Carola Brennan for psych eval. 9:30am is scheduled arrival time and expect a one hour visit.) [facility] [Outside] MARCE Chambers, FLOOR ATTENDANT [Primary Care Provider] - Discharge Diet: Regular Discharge Activity: Resume usual activity Patient Instructions: Prazosin (By mouth), Trazodone (By mouth), Amoxicillin (By mouth), Hydroxyzine Pamoate (By mouth), Citalopram (By mouth), Opioid Safety Discharge Attestations NPU Time Spent in Discharge Care*: less than 30 min Specific Discharge Activities: Specific discharge activities: educating patient, discussing with immigration case worker/social workers/dc planners, documenting/other paperwork and evaluating patient/reviewing data Coding Level of Care Code Acute [facility] DC note Diagnoses Depression F33.2 Active/Remission status: currently active Depression Type: major depressive disorder Major depression episode severity: severe Major depression recurrence: recurrent Psychotic features: without psychotic features Polysubstance abuse F19.10 Opioid dependence F11.23 Substance use status: in withdrawal Methamphetamine abuse F15.10 Cannabis abuse F12.10 Dental caries K02.9
== END 2020-12-21 11:35 | disposition home or self-care (01) | DRG 885 ==
LOC: ER 13:15 → NP 13:50
PROVIDERS: Admitting Provider Psychiatry & Neurology Psychiatry; Emergency Provider Family Medicine; PCP Nurse Practitioner Family; Visit Provider Psychiatry & Neurology Psychiatry
DX: F33.2 Major depressive disorder, recurrent severe without psychotic features (principal); F11.23 Opioid dependence with withdrawal; R45.851 Suicidal ideations; F15.10 Other stimulant abuse, uncomplicated; F12.10 Cannabis abuse, uncomplicated; F43.10 Post-traumatic stress disorder, unspecified; F41.9 Anxiety disorder, unspecified; F17.210 Nicotine dependence, cigarettes, uncomplicated; K02.9 Dental caries, unspecified; Z91.14 Patient's other noncompliance with medication regimen
CPT/HCPCS: 80053; 80306; 80307; 81001; 81025; 84443; 85025; 99285; Q0162

== ENCOUNTER → 2021-03-06 11:24 | Outpatient (BNVA) | payer OTHER, SELFPAY | PROVIDERS: PCP Nurse Practitioner Family; Visit Provider Psychiatry & Neurology Psychiatry | DX: F11.20 Opioid dependence, uncomplicated (principal); F12.20 Cannabis dependence, uncomplicated; F43.12 Post-traumatic stress disorder, chronic; F15.10 Other stimulant abuse, uncomplicated; F41.1 Generalized anxiety disorder; F33.2 Major depressive disorder, recurrent severe without psychotic features | CPT/HCPCS: 80307 ==

== ENCOUNTER → 2021-04-26 07:36 | Outpatient (BNVA) | payer OTHER, SELFPAY | PROVIDERS: PCP Nurse Practitioner Family; Visit Provider Psychiatry & Neurology Psychiatry | DX: F11.20 Opioid dependence, uncomplicated (principal) | CPT/HCPCS: 80307 ==

== ENCOUNTER → 2021-05-09 10:46 | Outpatient (BNVA) | payer OTHER, SELFPAY | PROVIDERS: PCP Nurse Practitioner Family; Visit Provider Psychiatry & Neurology Psychiatry | DX: F11.20 Opioid dependence, uncomplicated (principal) | CPT/HCPCS: 80307 ==

== ENCOUNTER → 2021-05-24 13:40 | Outpatient (BNVA) | payer OTHER, SELFPAY | PROVIDERS: PCP Nurse Practitioner Family; Visit Provider Psychiatry & Neurology Psychiatry | DX: F11.20 Opioid dependence, uncomplicated (principal) | CPT/HCPCS: 80307 ==

== ENCOUNTER → 2021-10-01 11:53 | Outpatient (BNVA) | payer OTHER, SELFPAY | PROVIDERS: PCP Nurse Practitioner Family; Visit Provider Psychiatry & Neurology Psychiatry | DX: F11.20 Opioid dependence, uncomplicated (principal); Z79.899 Other long term (current) drug therapy; F33.2 Major depressive disorder, recurrent severe without psychotic features; F41.1 Generalized anxiety disorder; F43.12 Post-traumatic stress disorder, chronic; F12.20 Cannabis dependence, uncomplicated; F15.10 Other stimulant abuse, uncomplicated | CPT/HCPCS: 80307 ==

== ENCOUNTER 2021-11-01 13:36 | Inpatient (IN) | payer MEDICAID, SELFPAY ==
[2021-11-01 13:41] VITALS: BMI 24.4
--- NOTE | 2021-11-01 13:55 | W.ED.NAVMDI ---
HPI - Nausea/Vomiting/Diarrhea General: Chief complaint: Nausea/Vomiting/Diarrhea Stated complaint: Took some medicine? Withdrawl? Time Seen by Provider: 11/01/21 13:55 History of Present Illness: Ms. Christopher is a 40-year-old lady with history of homelessness, polysubstance abuse, psychiatric disorder who presents to the emergency department for nausea vomiting and anxiety associated with abdominal pain. She has a history of methadone use and few months ago was switched to Suboxone. Apparently the Suboxone provider wanted to switch her to naltrexone and gave her instructions to stop Suboxone and switch to naltrexone after 1 week period of washout. She apparently tried this for 4 days however began to have withdrawal symptoms so was started at a half dose for a few days before stopping for another 4 days or so. She took a naltrexone this morning about 1.5 hours prior to arrival and approximately 30 minutes prior to arrival began having severe symptoms. She is homeless and reports neuropathy and difficulty sleeping the past few nights but otherwise no major changes in health. Intensity symptoms is severe. Course has persisted. Denies similar episodes in the past. No other specific changes in health, exacerbating, or alleviating factors identified. Onset (ago): minute(s) Description of vomiting: watery Associated nausea: Yes Associated abdominal pain: Yes Location of pain: Diffuse Severity: severe Associated symtoms: Reports nausea Review of Systems General: Reports: 10 or more systems reviewed and unremarkable except in HPI and below GI: Reports: nausea [facility] ED PFSH: Medical History Cannabis dependence, uncomplicated Opioid dependence, uncomplicated Other stimulant abuse, uncomplicated Post-traumatic stress disorder, chronic Psychiatric care Social History Smoking and tobacco status: current every day smoker cigarettes Packs smoked per day: 1 Years cigarettes smoked: 9 Quit status (tobacco): considering quitting Second hand smoke exposure: Yes Female Reproductive History: Date of last menstrual period: 10/01/20 Physical Exam Const: COMMON NORMALS: alert GENERAL APPEARANCE: cooperative, well developed, in distress and ill appearing HENMT: COMMON NORMALS: normocephalic and atraumatic HEAD & SCALP: normocephalic and atraumatic Eye: COMMON NORMALS: conjunctivae normal CONJUNCTIVA: Yes conjunctivae normal SCLERA: sclerae normal Neck/C-Spine: COMMON NORMALS: supple GENERAL: Yes trachea midline Resp: COMMON NORMALS: clear to auscultation bilaterally EFFORT & INSPECTION: Yes able to speak in complete sentences AUSCULTATION: clear to auscultation bilaterally Cardio: COMMON NORMALS: regular rate and regular rhythm RATE: regular rate RHYTHM: regular rhythm GI: COMMON NORMALS: Soft to palpation PALPATION: Yes Soft to palpation and No Tenderness to palpation present (GI) PERCUSSION: normal to percussion Extremity: GENERAL: Yes normal exam except as noted and No edema Neuro: COMMON NORMALS: moves all extremities SENSORIUM/ORIENTATION: Yes alert and No Orientation impaired Psych: COMMON NORMALS: mental status grossly normal and Normal thought process present THOUGHT PROCESS: Normal thought process present Course ED course: - Patient was seen and evaluated by me at bedside - Patient placed on cardiac monitors, IV access obtained - Initial evaluation notable for exam as above, distress due to symptoms - Labs personally interpreted by me - Clonidine, antiemetic, benzodiazepine, and IV fluids ordered. - Labs notable for no leukocytosis, normal hemoglobin. Metabolic panel notable for mild hypokalemia. Toxic ingestions only positive for marijuana, urine drug screen obtained after benzodiazepine administration in the emergency department which likely accounts for positive benzodiazepines. - Based on exam and clinical history I do not feel that imaging is needed at this time. - Upon serial reexamination after treatment the patient was worsening with regards to mental status, not strictly consistent with pure opioid withdrawal. Additional medications ordered. - In discussion with psychiatry service, as more conservative medications have failed to improve symptoms, I will order Suboxone strictly for treatment of acute withdrawal symptoms. - The patient did have improvement with Suboxone. - Based on patient history, evaluation, and testing as interpreted the most likely cause of the patient's condition is acute precipitated opioid withdrawal as well as unspecified psychiatric illness - The results of ED evaluation were discussed with the patient including plan for admission due to requirement for level of care not available if discharged to prevent significant worsening/deterioration. - Patient admitted to psychiatry unit for definitive management and treatment. - Patient was admitted without further deterioration or significant events. Symptoms began to recur and additional dose of Suboxone ordered. Note: Click bubbles or prepopulated romero in note writing are used for assistance with data collection and billing and are inherently more limited than narrative and other text portions of this note. Please use narrative for additional clinical history and defer to narrative/free test for any case of contradictory information. If information appears in only free text or click bubble it should be considered present or absent as reported. Please contact note communications writer for clarifications of clinical information or contradictory information. MDM is a brief summary, contradictory or erroneous seeming information should be clarified and full note should be reviewed. Vital Signs: Vital signs: Vital Signs Temperature 97.5 F L 11/04/21 06:04 Pulse Rate 69 11/04/21 06:04 Respiratory Rate 18 11/04/21 06:04 Blood Pressure 99/60 11/04/21 06:04 Pulse Oximetry 97 11/04/21 06:04 MDM - Nausea/Vomiting/Diarrhea Medical Decision Making 40-year-old lady presenting with precipitated acute opioid withdrawal. Patient in distress due to symptoms and required multiple rounds of medication with conservative medication providing minimal relief. In discussion with psychiatry service patient given Suboxone for treatment of acute opioid withdrawal in the context of previous use with some improvement. Patient's mental status did not appear completely consistent with acute opiate withdrawal and likely contains component of underlying psychiatric illness, therefore patient will be admitted for definitive treatment and management to psychiatry service in improved condition. Medical Records I reviewed the patient's medical records. Lab Data I reviewed the patient's lab results. : 11/01/21 16:19 11/01/21 14:14 Laboratory Results WBC 7.1 10^3/uL (4.0-10.0) 11/01/21 16:19 RBC 5.52 10^6/uL (4.1-5.3) H 11/01/21 16:19 Hgb 14.8 g/dL (11.5-15.3) 11/01/21 16:19 Hct 46.1 % (37.0-47.0) 11/01/21 16:19 MCV 83.5 fl (81-99) 11/01/21 16:19 MCH 26.8 pg (28.0-34.0) L 11/01/21 16:19 MCHC 32.1 g/dL (30.0-36.0) 11/01/21 16:19 RDW 13.8 % (12.1-15.1) 11/01/21 16:19 Plt Count 504 10^3/cmm (130-400) H 11/01/21 16:19 MPV 8.6 fL (7.4-10.4) 11/01/21 16:19 Neut % (Auto) 82.2 % 11/01/21 16:19 Lymph % (Auto) 13.6 % 11/01/21 16:19 [place] % (Auto) 3.6 % 11/01/21 16:19 Eos % (Auto) 0.1 % 11/01/21 16:19 Baso % (Auto) 0.4 % 11/01/21 16:19 Neut # (Auto) 5.86 10^3/uL (1.8-7.7) 11/01/21 16:19 Lymph # (Auto) 1.0 10^3/uL (0.8-4.8) 11/01/21 16:19 [place] # (Auto) 0.3 10^3/uL (0.2-0.9) 11/01/21 16:19 Eos # (Auto) 0.0 10^3/uL (0.0-0.8) 11/01/21 16:19 Baso # (Auto) 0.0 10^3/uL (0.0-0.1) 11/01/21 16:19 Nucleated RBC % (auto) 0 % 11/01/21 16:19 Nucleated RBCs # 0.0 /100WBC 11/01/21 16:19 Sodium 140 mmol/L (136-145) 11/01/21 14:14 Potassium 3.3 mmol/L (3.5-5.1) L 11/01/21 14:14 Chloride 101 mmol/L (98-107) 11/01/21 14:14 Carbon Dioxide 24 mmol/L (22-29) 11/01/21 14:14 Anion Gap 18.3 (5-19) 11/01/21 14:14 BUN 11 mg/dL (6-20) 11/01/21 14:14 Creatinine 0.5 mg/dL (0.5-0.9) 11/01/21 14:14 GFR Calculation 137.4 mL/min (90-130) H 11/01/21 14:14 Glucose 108 mg/dL (65-115) 11/01/21 14:14 Calculated Osmolality 290 mOsm/kg (285-295) 11/01/21 14:14 Calcium 10.4 mg/dL (8.5-10.5) 11/01/21 14:14 Total Bilirubin 0.5 mg/dL (0.15-1.2) 11/01/21 14:14 AST 17 U/L (0-32) 11/01/21 14:14 ALT 31 U/L (0-33) 11/01/21 14:14 Alkaline Phosphatase 146 IU/L (35-105) H 11/01/21 14:14 Total Protein 7.8 g/dL (6.6-8.7) 11/01/21 14:14 Albumin 4.7 g/dL (3.5-5.2) 11/01/21 14:14 Globulin 3.1 g/dL (1.3-4.6) 11/01/21 14:14 HCG, Qual Negative (Negative) 11/01/21 14:14 Salicylates < 0.3 mg/dL (3-10) L 11/01/21 14:14 Urine Opiates Screen Negative ng/mL (Negative) 11/01/21 17:05 Acetaminophen < 5.0 ug/mL (10-30) L 11/01/21 14:14 Ur Barbiturates Screen Negative ng/mL (Negative) 11/01/21 17:05 Ur Phencyclidine Scrn Negative ng/mL (Negative) 11/01/21 17:05 Ur Amphetamines Screen Negative ng/mL (Negative) 11/01/21 17:05 U Benzodiazepines Scrn Positive ng/mL (Negative) H 11/01/21 17:05 Urine Cocaine Screen Negative ng/mL (Negative) 11/01/21 17:05 U Marijuana (THC) Screen Positive ng/mL (Negative) H 11/01/21 17:05 Ethyl Alcohol < 10 mg/dL (0-10) 11/01/21 14:14 Critical Care Time Critical Care Time: Critical Care Time: Yes Total Critical Care Time: 35 Attestation: Due to a high probability of clinically significant, possibly life threatening deterioration, the patient required my highest level of attention and preparedness to intervene emergently and I personally spent this critical care time directly and personally managing the patient. This critical care time included obtaining a history; examining the patient; pulse oximetry; ordering and review of laboratory and imaging studies; arranging urgent treatment with development of a management plan; evaluation of patient's response to treatment; frequent reassessment; and, discussions with other providers as applicable. It was exclusive of separately billable procedures. Discharge Plan Discharge Patient Disposition: Admitted As Inpatient Admit Provider: Rashel Patton Clinical Impression: Acute alteration in mental status, Withdrawal from opioids Condition: Stable Discharge Diet: Regular Discharge Activity: Resume usual activity Coding Level of Care Code ED Insurance Verification Rep for Rell Verde
[2021-11-01] MEDS: ondansetron 2 mg/ML SDV 2 mL 4 MG IVP (14:27)
[2021-11-01] MEDS: LORazepam 2 mg/mL INJ 1 mL IVP ×2 (14:31→15:37)
[2021-11-01 14:32] VITALS: BP 118/73
[2021-11-01] MEDS: cloNIDine 0.1 mg Tablet PO ×2 (14:32→15:36)
[2021-11-01] MEDS: sodium chloride 0.9% 1,000 ML 999 ML IV (14:32)
[2021-11-01 15:36] VITALS: BP 117/99
[2021-11-01 16:39] LABS: HCG, Serum Qual Negative (Negative)
[2021-11-01 16:46] LABS: Alanine Aminotransferase 31 U/L (0-33); Albumin Level 4.7 g/dL (3.5-5.2); Alkaline Phosphatase 146 IU/L (35-105); Anion Gap 18.3 (5-19); Aspartate Amino Transferase 17 U/L (0-32); Blood Urea Nitrogen 11 mg/dL (6-20); Calcium 10.4 mg/dL (8.5-10.5); Carbon Dioxide 24 mmol/L (22-29); Chloride 101 mmol/L (98-107); Globulin 3.1 g/dL (1.3-4.6); Glomerular Filtration Rate 137.4 mL/min (90-130); Glucose 108 mg/dL (65-115); Osmolality Calculated 290 mOsm/kg (285-295); Potassium 3.3 mmol/L (3.5-5.1); Sodium 140 mmol/L (136-145); Total Bilirubin 0.5 mg/dL (0.15-1.2); Total Protein 7.8 g/dL (6.6-8.7)
[2021-11-01 16:50] LABS: Basophils % 0.4 %; Eosinophils % 0.1 %; Hematocrit 46.1 % (37.0-47.0); Hemoglobin 14.8 g/dL (11.5-15.3); Lymphocytes % 13.6 %; Mean Corpuscular HGB Conc 32.1 g/dL (30.0-36.0); Mean Corpuscular Hemoglobin 26.8 pg (28.0-34.0); Mean Corpuscular Volume 83.5 fl (81-99); Mean Platelet Volume 8.6 fL (7.4-10.4); Monocytes # 0.3 10^3/uL (0.2-0.9); Monocytes % 3.6 %; Neutrophils # 5.86 10^3/uL (1.8-7.7); Neutrophils % 82.2 %; Nucleated Red Blood Cells % 0 %; Platelet Count 504 10^3/cmm (130-400); Red Blood Count 5.52 10^6/uL (4.1-5.3); Red Cell Distribution Width 13.8 % (12.1-15.1); White Blood Count 7.1 10^3/uL (4.0-10.0)
[2021-11-01] MEDS: OLANZapine 5 mg ODT 2.5 MG PO (16:59)
[2021-11-01] MEDS: haloperidol inj 5 mg/mL INJ 1 mL 2.5 MG IM (16:59)
[2021-11-01 17:14] LABS: Acetaminophen < 5.0 ug/mL (10-30); Alcohol Level < 10 mg/dL (0-10); Salicylate < 0.3 mg/dL (3-10)
[2021-11-01 17:43] LABS: Amphetamines Screen Urine Negative (Negative); Barbiturates Screen Urine Negative (Negative); Benzodiazepines Screen Urine Positive (Negative); Cocaine Screen Urine Negative (Negative); Opiate Screen Urine Negative (Negative); PCP Screen Urine Negative (Negative); THC Screen Urine Positive (Negative)
[2021-11-01] MEDS: buprenorphine-naloxone 4-1 mg Film 1 EACH SUBLINGUAL ×2 (18:35→22:06)
[2021-11-01 18:36] VITALS: BP 121/72; PULSE 85; RESP 18; O2SAT 97
--- NOTE | 2021-11-01 19:14 | PC.NURSE ---
pt laying in bed rocking back and forth, unwilling or unable to answer any questions. in bed with eyes closed
[2021-11-01 21:27] VITALS: RESP 18; O2SAT 98
[2021-11-01] MEDS: potassium chloride oral liq 20 mEq/15 mL UDC 40 MEQ PO (21:29)
[2021-11-01 22:18] VITALS: BP 84/44; PULSE 84; RESP 16; O2SAT 98
--- NOTE | 2021-11-01 22:47 | PC.ADMIT ---
[address] [facility] [address] [address] Admission Note: patient presents to ED with nausea, vomiting, diarrhea, abdominal pain starting this evening. patient has slowly been weening off suboxone and onto naltrexone with PCP. she was on suboxone for the last 4 years, 8mg daily. patient took first dose of naltrexone today, and symptoms started and gradually worsened. patient was given a battery of medications in the ED including: suboxone, clonidine, potassium, haldol, zyprexa, ativan, zofran, with a bolus. potassium level was 3.3. ER nurse said patient was rowdy upon arrival but has been cooperative since then with mild anxiety. patient denies alcohol use, UDS is positive for benzodiazepines and marijuana. patient was on methadone for over 10 years, began taking vicadin and oxycontin around age 12, then started taking methadone. she states has been clean for the last year. patient affect is anxious, delayed responses. patient stated she has not been psych inpatient before, however records show she has been admitted here last year. patient denies SI, HI, auditory, visual, tactile, olfactory hallucinations. she is not currently taking any medications other than the prescribed naltrexone, however it should be noted again that she was given suboxone in the ED this evening. The patient,Janice Christopher,40 y/o, was given written information regarding hospital policies, unit procedures and contact persons. Patient's smoking status: current every day smoker. Vital Signs - 8 hr 11/01/21 15:36 11/01/21 18:36 11/01/21 21:27 Pulse Rate 85 Respiratory Rate 18 18 Blood Pressure 117/99 121/72 Pulse Oximetry 97 98 11/01/21 22:18 Pulse Rate 84 Respiratory Rate 16 Blood Pressure 84/44 Pulse Oximetry 98
[2021-11-01] MEDS: hyDROXYzine 25 mg Capsule 50 MG PO (23:33)
--- NOTE | 2021-11-01 23:40 | PC.NURSE ---
patient at nurses station, states she is anxious
[2021-11-02 05:54] VITALS: BP 114/71; PULSE 73; RESP 18; O2SAT 97
--- NOTE | 2021-11-02 09:13 | P.NPUHP_ITS ---
Providers/Chief Complaint Admitting Physician: Rashel Patton MD Primary Care Provider: JOHN Moya Chief Complaint: Took some medicine? Withdrawl? HPI NPU History of Present Illness Janice Christopher is a 40 year old female who presented to the emergency department with the following report: Ms. Christopher is a 40-year-old lady with history of homelessness, polysubstance abuse, psychiatric disorder who presents to the emergency department for nausea vomiting and anxiety associated with abdominal pain. She has a history of methadone use and few months ago was switched to Suboxone. Apparently the Suboxone provider wanted to switch her to naltrexone and gave her instructions to stop Suboxone and switch to naltrexone after 1 week period of washout. She apparently tried this for 4 days however began to have withdrawal symptoms so was started at a half dose for a few days before stopping for another 4 days or so. She took a naltrexone this morning about 1.5 hours prior to arrival and approximately 30 minutes prior to arrival began having severe symptoms. She is homeless and reports neuropathy and difficulty sleeping the past few nights but otherwise no major changes in health. Intensity symptoms is severe. Course has persisted. Denies similar episodes in the past. No other specific changes in health, exacerbating, or alleviating factors identified. She was admitted to the neuropsychiatric unit for definitive treatment of those issues. This is her fourth hospitalization in the electronic medical record at [facility] and she has been a client of [facility] for the past 14 years for the most part. She smokes cigarettes but denies significant alcohol, endorses marijuana but denies any other illicit drugs currently but has had a problem with methamphetamine in the past is also struggled with opiates and recently was on Suboxone. She reports that her past year has been an up-and-down struggle with a period of success that lasted about 6 months was followed by relapses of difficulties but she has been doing well on the Suboxone recently. She and Dr. Dey decide to see if she could get off the Suboxone and move over to naltrexone however the strategy of changing she used seemed to not appreciate the pharmacokinetics of the medications and she had not had a significant enough washout. And precipitated withdrawal with initiation of the naltrexone. She presented to the emergency room with great difficulty surrounding being pushed into withdrawal. Otherwise she denies any issues with any medications she was feeling suicidal and had altered mental status so she was admitted to the hospital. We discussed the plan of using as needed Suboxone and getting her a dose at discharge early Thursday morning with a plan to contact [facility] and see if she can get some continued assistance in this attempt to discontinue the Suboxone. We discussed the risk-benefit alternatives of how we would manage her withdrawal and she understood and agreed proceed as is documented in his note. An excerpt from her December 2020 inpatient psychiatric evaluation is included below for context as she denies any substantive changes other than her place of residence and the job she is starting on Thursday. Per her 12/18/2020 [facility] inpatient psychiatric evaluation: History of Present Illness Janice Christopher is a 40 year old female with longstanding history of opioid dependence, polysubstance abuse with positive urine drug screen for methamphetamine and cannabis as well as history of PTSD presenting to the emergency department with complaint of worsening depressive symptoms being off of her antidepressant for several months and reported suicidal gesture 6 months ago of attempting to hang herself with a rope prior to her finding her.? Patient states that that was not a suicide attempt and only a gesture with no actual intent of wanting to end her life which she has previously reported during mental health encounters.? She currently denies any suicidal ideation but does report intermittent depressive symptoms to include low mood, decreased energy or interest in her usual activities. Patient also reports having anxiety symptoms which she states are exacerbated by withdrawing from opioids or Suboxone.? She reports seeing [facility] last week for an intake but has not been able to get in for medication management appointment. She reports recent use of methamphetamine and cannabis but states that she only used because she was unable to get Suboxone although she does report occasionally getting Suboxone off of the street and using it. Patient has a history of PTSD with longstanding history of trauma throughout her childhood but currently denies any PTSD symptoms. She denies any past or recent hypomanic or manic episodes. She denies any perceptual disturbances, denies any delusions. Psychiatric review of systems is otherwise negative. Patient reports that her appetite is fair and states that she has always been a picky eater but, of note, patient in previous notes also reports reports of having a cramping stomach and poor appetite despite perpetually either using stimulants or methamphetamine.? She reports having a headache although also rep orts other withdrawal symptoms of stomach cramping, loose stools, difficulty with sleep. Patient reports that she and her recently got a camper to live in. Meds NPU Home Medications Medication Instructions Recorded Confirmed Last Taken Type acetaminophen 500 mg tablet 1,000 mg PO DAILY PRN tab 05/24/21 11/01/21 Unknown History (Tylenol Extra Strength) ibuprofen 200 mg tablet 800 mg PO DAILY PRN tab 05/24/21 11/01/21 Unknown History naltrexone 50 mg tablet 50 mg PO DAILY #30 tab 10/21/21 11/01/21 11/01/21 Rx buprenorphine 8 mg-naloxone 2 mg See Rx Instructions .ROUTE .COMPLEX 11/01/21 11/01/21 Unknown History sublingual tablet Allergies Allergy/AdvReac Type Severity Reaction Status Date / Time No Known Allergies Allergy Verified 11/01/21 15:15 PFSH NPU PFSH: Medical History Cannabis dependence, uncomplicated Opioid dependence, uncomplicated Other stimulant abuse, uncomplicated Post-traumatic stress disorder, chronic Psychiatric care Social History Smoking and tobacco status: current every day smoker cigarettes Packs smoked per day: 1 Years cigarettes smoked: 9 Quit status (tobacco): considering quitting Second hand smoke exposure: Yes Mental Status Exam MSE Comments: This is a diminutive slender white female in hospital scrubs on with adequate grooming and eye contact.? No abnormal movements except for mild psychomotor retardation.? Cooperative with exam in no acute distress.? Speech was mostly normal rate and volume.? Mood described as better than yesterday, affect slightly subdued.? Thought process organized.? Thought content: Patient denied suicidal or homicidal ideation, there were no delusions reported or noted, she denied any auditory visualizations.? Attention and concentration were intact and memory appeared reliable but none were formally tested.? She is alert and oriented x3.? Insight and judgment appear fair and impulse control is limited. 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: Status: Acute (4) Major depressive disorder, recurrent severe without psychotic features: Status: Acute (5) Generalized anxiety disorder: Status: Acute (6) Post-traumatic stress disorder, chronic: Status: Acute (7) Cannabis use disorder, severe, dependence: Status: Acute (8) Opioid use disorder, severe, dependence: Status: Acute (9) Other stimulant abuse, uncomplicated: Status: Acute Plan This is a 40-year-old white female with a long history of mental health and addiction issues who presents with active addiction off of medication and currently attempting to transition from Suboxone to naltrexone and encountered precipitated withdrawal and altered mental status. 1.? Continue current medication. We will use as needed low-dose Suboxone to help her continued withdrawal and reconnect her with Dr. Dey on Thursday. 2.? Continue every 15 minute checks for safety. 3.? Encourage individual, group and milieu therapies. 4.? Encourage sober living treatment after discharge at the highest level of care to which she is willing to commit. 5.? Plan for discharge Thursday. Involuntary Hold Information 96 Hour Hold: 96 Hour Involuntary Admission: No Attestations NPU Medical Necessity Statement*: Inpatient hospitalization is medically necessary and the clinically appropriate intervention at this time.? We will monitor medications and make changes as indicated.? She will be in the hospital for over 2 midnights. Likely length of stay 1 to 3 days. 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
[2021-11-02] MEDS: nicotine 2 mg Gum BUCCAL (12:59)
[2021-11-02 14:00] VITALS: BP 105/69; PULSE 100; RESP 16; TEMP 36.6; O2SAT 99
[2021-11-02] MEDS: buprenorphine-naloxone 4-1 mg Film 1 EACH SUBLINGUAL ×2 (14:34→20:12)
--- NOTE | 2021-11-02 16:53 | PC.NURSE ---
Shift note Patient has been polite and denied issues this shift. She did have one prn suboxone dose this shift. She has eaten meals in the day room. She has rested in her room the rest of the shift.
[2021-11-02 20:08] VITALS: BP 117/77; PULSE 91; RESP 17; TEMP 36.8; O2SAT 96
[2021-11-02] MEDS: trazodone 50 mg Tablet PO ×2 (20:10→22:15)
[2021-11-02] MEDS: acetaminophen 325 mg Tablet 650 MG PO (20:10)
[2021-11-02] MEDS: ibuprofen 600 mg Tablet PO (21:03)
--- NOTE | 2021-11-02 22:02 | PC.NURSE ---
2009- C/O pain, and insomnia. Tylenol, suboxone and trazodone given. They were not effective except for the suboxone. 2102- IBU given for pain. It was effective. 2199- Repeat of trazodone given po
[2021-11-02] MEDS: OLANZapine 5 mg ODT PO (22:52)
--- NOTE | 2021-11-02 22:56 | PC.NURSE ---
Patient c/o racing thoughts that make it hard to sleep and anxiety. Given PRN Zydis as ordered.
[2021-11-02] MEDS: benztropine 1 mg Tablet PO (23:46)
[2021-11-02] MEDS: haloperidol 5 mg Tablet PO (23:46)
[2021-11-03 02:54] VITALS: BMI 22.3
[2021-11-03] MEDS: buprenorphine-naloxone 4-1 mg Film 1 EACH SUBLINGUAL ×2 (09:53→16:25)
--- NOTE | 2021-11-03 10:34 | W.PM.NPUPNS ---
Subjective NPU Subjective: Patient presents today reporting that she is still invested in our plan for discharge tomorrow. She reports that the doses of Suboxone have carried her and she is hopeful that Dr. Dey will continue to work with her on her discontinuation of Suboxone but that she was really in a rough situation and appreciative of the intervention. She is denying any new or problematic issues also reported that her should be out of senior living/usp and off of any drugs as well and so this will be good for both of them. Mental Status Exam MSE Comments: This is a diminutive slender white female in hospital scrubs on with adequate grooming and eye contact.? No abnormal movements.? Cooperative with exam in no acute distress.? Speech was normal rate and volume.? Mood described as better, affect congruent.? Thought process organized.? Thought content: Patient denied suicidal or homicidal ideation, there were no delusions reported or noted, she denied any auditory visualizations.? Attention and concentration were intact and memory appeared reliable but none were formally tested.? She is alert and oriented x3.? Insight and judgment appear fair and impulse control is limited, but improving Vitals/I&O/Wt Last Vital Signs Temp 98.3 F 11/02/21 20:08 Pulse 91 11/02/21 20:08 Resp 17 11/02/21 20:08 BP 117/77 11/02/21 20:08 Pulse Ox 96 11/02/21 20:08 Weight last 48 hrs Weight 53.637 kg Weight 56.699 kg Data NPU : 11/01/21 16:19 11/01/21 14:14 A&P Assessment and plan (1) Opioid use disorder, severe, dependence: Status: Acute (2) Cannabis use disorder, severe, dependence: Status: Acute (3) Acute alteration in mental status: Status: Acute (4) Withdrawal from opioids: Status: Acute (5) Other fpc (current) drug therapy: Status: Acute (6) Major depressive disorder, recurrent severe without psychotic features: Status: Acute (7) Generalized anxiety disorder: Status: Acute (8) Post-traumatic stress disorder, chronic: Status: Acute Plan This is a 40-year-old white female with a long history of mental health and addiction issues who presents with active addiction off of medication and currently attempting to transition from Suboxone to naltrexone and encountered precipitated withdrawal and altered mental status. 1.? Continue current medication.? We will use as needed low-dose Suboxone to help her continued withdrawal and reconnect her with Dr. Dey tomorrow. 2.? Continue every 15 minute checks for safety. 3.? Encourage individual, group and milieu therapies. 4.? Encourage sober living treatment after discharge at the highest level of care to which she is willing to commit. 5.? Plan for discharge tomorrow morning. Involuntary Hold Information 96 Hour Hold: 96 Hour Involuntary Admission: No Attestations NPU Medical Necessity Statement*: Inpatient hospitalization is medically necessary and the clinically appropriate intervention at this time.? We will monitor medications and make changes as indicated.?? Plan for discharge tomorrow. 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
[2021-11-03] MEDS: nicotine 2 mg Gum BUCCAL ×2 (12:18→17:32)
[2021-11-03 14:00] VITALS: BP 130/60; PULSE 103; RESP 16; TEMP 36.8; O2SAT 96
[2021-11-03] MEDS: hyDROXYzine 25 mg Capsule 50 MG PO (17:31)
[2021-11-03] MEDS: OLANZapine 5 mg ODT PO (17:32)
[2021-11-03 20:05] VITALS: BP 100/44; PULSE 87; RESP 18; TEMP 36.9; O2SAT 96
[2021-11-03] MEDS: haloperidol 5 mg Tablet PO (20:20)
--- NOTE | 2021-11-03 20:26 | PC.NURSE ---
Patient requested medication for anxiety. She is very anxious about where her and her will stay after she is discharged. She states they cannot go to the homeless alf because her has a ticket he needs to pay in [place]. 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 She has received Visteril and Olanzapine today. Haldol was given PO.
--- NOTE | 2021-11-04 05:46 | W.PM.NPUDCS ---
Diagnoses at Discharge Discharge Diagnosis (1) Opioid use disorder, severe, dependence: Status: Acute (2) Cannabis use disorder, severe, dependence: Status: Acute (3) Acute alteration in mental status: Status: Acute (4) Withdrawal from opioids: Status: Acute (5) Other detention (current) drug therapy: Status: Acute (6) Major depressive disorder, recurrent severe without psychotic features: Status: Acute (7) Generalized anxiety disorder: Status: Acute (8) Post-traumatic stress disorder, chronic: Status: Acute Reason for Visit Reason for Visit: Took some medicine? Withdrawl? Brief History: History of Present Illness Janice Christopher is a 40 year old female who presented to the emergency department with the following report: Ms. Christopher is a 40-year-old lady with history of homelessness, polysubstance abuse, psychiatric disorder who presents to the emergency department for nausea vomiting and anxiety associated with abdominal pain.? She has a history of methadone use and few months ago was switched to Suboxone.? Apparently the Suboxone provider wanted to switch her to naltrexone and gave her instructions to stop Suboxone and switch to naltrexone after 1 week period of washout.? She apparently tried this for 4 days however began to have withdrawal symptoms so was started at a half dose for a few days before stopping for another 4 days or so.? She took a naltrexone this morning about 1.5 hours prior to arrival and approximately 30 minutes prior to arrival began having severe symptoms.? She is homeless and reports neuropathy and difficulty sleeping the past few nights but otherwise no major changes in health.? Intensity symptoms is severe.? Course has persisted.? Denies similar episodes in the past.? No other specific changes in health, exacerbating, or alleviating factors identified. She was admitted to the neuropsychiatric unit for definitive treatment of those issues.? This is her fourth hospitalization in the electronic medical record at [facility] and she has been a client of [facility] for the past 14 years for the most part.? She smokes cigarettes but denies significant alcohol, endorses marijuana but denies any other illicit drugs currently but has had a problem with methamphetamine in the past is also struggled with opiates and recently was on Suboxone.? She reports that her past year has been an up-and-down struggle with a period of success that lasted about 6 months was followed by relapses of difficulties but she has been doing well on the Suboxone recently.? She and Dr. Dey decide to see if she could get off the Suboxone and move over to naltrexone however the strategy of changing she used seemed to not appreciate the pharmacokinetics of the medications and she had not had a significant enough washout.? And precipitated withdrawal with initiation of the naltrexone.? She presented to the emergency room with great difficulty surrounding being pushed into withdrawal.? Otherwise she denies any issues with any medications she was feeling suicidal and had altered mental status so she was admitted to the hospital.? We discussed the plan of using as needed Suboxone and getting her a dose at discharge early Thursday morning with a plan to contact [facility] and see if she can get some continued assistance in this attempt to discontinue the Suboxone.? We discussed the risk-benefit alternatives of how we would manage her withdrawal and she understood and agreed proceed as is documented in his note.? An excerpt from her December 2020 inpatient psychiatric evaluation is included below for context as she denies any substantive changes other than her place of residence and the job she is starting on Thursday. Per her 12/18/2020 [facility] inpatient psychiatric evaluation: History of Present Illness Janice Christopher is a 40 year old female with longstanding history of opioid dependence, polysubstance abuse with positive urine drug screen for methamphetamine and cannabis as well as history of PTSD presenting to the emergency department with complaint of worsening depressive symptoms being off of her antidepressant for several months and reported suicidal gesture 6 months ago of attempting to hang herself with a rope prior to her finding her.? Patient states that that was not a suicide attempt and only a gesture with no actual intent of wanting to end her life which she has previously reported during mental health encounters.? She currently denies any suicidal ideation but does report intermittent depressive symptoms to include low mood, decreased energy or interest in her usual activities. Patient also reports having anxiety symptoms which she states are exacerbated by withdrawing from opioids or Suboxone.? She reports seeing [facility] last week for an intake but has not been able to get in for medication management appointment. She reports recent use of methamphetamine and cannabis but states that she only used because she was unable to get Suboxone although she does report occasionally getting Suboxone off of the street and using it. Patient has a history of PTSD with longstanding history of trauma throughout her childhood but currently denies any PTSD symptoms. She denies any past or recent hypomanic or manic episodes. She denies any perceptual disturbances, denies any delusions. Psychiatric review of systems is otherwise negative. Patient reports that her appetite is fair and states that she has always been a picky eater but, of note, patient in previous notes also reports reports of having a cramping stomach and poor appetite despite perpetually either using stimulants or methamphetamine.? She reports having a headache although also reports other withdrawal symptoms of stomach cramping, loose stools, difficulty with sleep. Patient reports that she and her recently got a camper to live in. Hospital Course Hospital Course She quickly acclimated to the individual, group and milieu therapies provided. Became clear that her opiate withdrawal was likely the entire cause of her presenting syndrome. We gave her as needed Suboxone and reached out to her current provider who agreed to continue the process of either helping her get off the Suboxone and a slower pace or continue her on the Suboxone depending on what they decide. She had a job starting and financial stability is a significant challenge in her circumstance. She had some improvement in her better safety outside the hospital prior to discharge. During the hospitalization, patient had routine laboratory studies which were within normal limits except for few outliers. Additionally there was a general medical evaluation which was also within normal limits and revealed no new acute processes. Discharge Summary: At the time of discharge, psychosis and lethality were denied. Mood and anxiety were well managed. Patient endorsed a plan to avoid all drugs of abuse and follow-up with the aftercare recommendations of the treatment team. Patient was evaluated and deemed to be absent credible lethality, and had achieved the maximum benefit from an inpatient hospitalization, so was discharged. Involuntary Hold Information 96 Hour Hold: 96 Hour Involuntary Admission: No Mental Status Exam MSE Comments: This is a diminutive slender white female in hospital scrubs on with adequate grooming and eye contact.? No abnormal movements.? Cooperative with exam in no acute distress.? Speech was normal rate and volume.? Mood described as better, affect congruent.? Thought process organized.? Thought content: Patient denied suicidal or homicidal ideation, there were no delusions reported or noted, she denied any auditory visualizations.? Attention and concentration were intact and memory appeared reliable but none were formally tested.? She is alert and oriented x3.? Insight and judgment appear fair and impulse control is limited, but improving Discharge Data Studies Completed and Pending: Laboratory Results WBC 7.1 10^3/uL (4.0- 10.0) 11/01/21 16:19 RBC 5.52 10^6/uL (4.1 -5.3) H 11/01/21 16:19 Hgb 14.8 g/dL (11.5-1 5.3) 11/01/21 16:19 Hct 46.1 % (37.0-47.0 ) 11/01/21 16:19 MCV 83.5 fl (81-99) 11/01/21 16:19 MCH 26.8 pg (28.0-34. 0) L 11/01/21 16:19 MCHC 32.1 g/dL (30.0-3 6.0) 11/01/21 16:19 RDW 13.8 % (12.1-15.1 ) 11/01/21 16:19 Plt Count 504 10^3/cmm (130 -400) H 11/01/21 16:19 MPV 8.6 fL (7.4-10.4) 11/01/21 16:19 Neut % (Auto) 82.2 % 11/01/21 16:19 Lymph % (Auto) 13.6 % 11/01/21 16:19 [place] % (Auto) 3.6 % 11/01/21 16:19 Eos % (Auto) 0.1 % 11/01/21 16:19 Baso % (Auto) 0.4 % 11/01/21 16:19 Neut # (Auto) 5.86 10^3/uL (1.8 -7.7) 11/01/21 16:19 Lymph # (Auto) 1.0 10^3/uL (0.8- 4.8) 11/01/21 16:19 [place] # (Auto) 0.3 10^3/uL (0.2- 0.9) 11/01/21 16:19 Eos # (Auto) 0.0 10^3/uL (0.0- 0.8) 11/01/21 16:19 Baso # (Auto) 0.0 10^3/uL (0.0- 0.1) 11/01/21 16:19 Nucleated RBC % (a uto) 0 % 11/01/21 16:19 Nucleated RBCs # 0.0 /100WBC 11/01/21 16:19 Sodium 140 mmol/L (136-1 45) 11/01/21 14:14 Potassium 3.3 mmol/L (3.5-5 .1) L 11/01/21 14:14 Chloride 101 mmol/L (98-10 7) 11/01/21 14:14 Carbon Dioxide 24 mmol/L (22-29) 11/01/21 14:14 Anion Gap 18.3 (5-19) 11/01/21 14:14 BUN 11 mg/dL (6-20) 11/01/21 14:14 Creatinine 0.5 mg/dL (0.5-0. 9) 11/01/21 14:14 GFR Calculation 137.4 mL/min (90- 130) H 11/01/21 14:14 Glucose 108 mg/dL (65-115 ) 11/01/21 14:14 Calculated Osmolal ity 290 mOsm/kg (285- 295) 11/01/21 14:14 Calcium 10.4 mg/dL (8.5-1 0.5) 11/01/21 14:14 Total Bilirubin 0.5 mg/dL (0.15-1 .2) 11/01/21 14:14 AST 17 U/L (0-32) 11/01/21 14:14 ALT 31 U/L (0-33) 11/01/21 14:14 Alkaline Phosphata se 146 IU/L (35-105) H 11/01/21 14:14 Total Protein 7.8 g/dL (6.6-8.7 ) 11/01/21 14:14 Albumin 4.7 g/dL (3.5-5.2 ) 11/01/21 14:14 Globulin 3.1 g/dL (1.3-4.6 ) 11/01/21 14:14 HCG, Qual Negative (Negati ve) 11/01/21 14:14 Salicylates < 0.3 mg/dL (3-10 ) L 11/01/21 14:14 Urine Opiates Scre en Negative ng/mL (N egative) 11/01/21 17:05 Acetaminophen < 5.0 ug/mL (10-3 0) L 11/01/21 14:14 Ur Barbiturates Sc reen Negative ng/mL (N egative) 11/01/21 17:05 Ur Phencyclidine S crn Negative ng/mL (N egative) 11/01/21 17:05 Ur Amphetamines Sc reen Negative ng/mL (N egative) 11/01/21 17:05 U Benzodiazepines Scrn Positive ng/mL (N egative) H 11/01/21 17:05 Urine Cocaine Scre en Negative ng/mL (N egative) 11/01/21 17:05 U Marijuana (THC) Screen Positive ng/mL (N egative) H 11/01/21 17:05 Ethyl Alcohol < 10 mg/dL (0-10) 11/01/21 14:14 Vitals: Last Vital Signs Temp 98.4 F 11/03/21 20:05 Pulse 87 11/03/21 20:05 Resp 18 11/03/21 20:05 BP 100/44 11/03/21 20:05 Pulse Ox 96 11/03/21 20:05 Discharge Plan Discharge Patient Disposition: Home Condition: Stable Prescriptions: Continued Tylenol Extra Strength 500 mg tablet 1,000 mg PO DAILY PRN (Reason: fever or pain) 0RF ibuprofen 200 mg tablet 800 mg PO DAILY PRN (Reason: fever or pain) 0RF No Action amoxicillin-pot clavulanate 875-125 mg tablet 1 tab PO BID 7 Days Qty: 14 0RF buprenorphine-naloxone 8-2 mg tablet, sublingual 1 tab sublingual DAILY Qty: 7 0RF Discharge Orders: Discharge Order (Routine); Ordered 11/04/21 Ordered By: Rashel Patton Referrals: MARCE Chambers, [employer] [Primary Care Provider] - Discharge Diet: Regular Discharge Activity: Resume usual activity Patient Instructions: Opioid Safety Discharge Attestations NPU Time Spent in Discharge Care*: less than 30 min Specific Discharge Activities: Specific discharge activities: educating patient, discussing with medical case manager/social workers/dc planners, documenting/other paperwork and evaluating patient/reviewing data Coding Level of Care Code Acute Chg FW DC note Diagnoses Opioid use disorder, severe, dependence F11.20 Cannabis use disorder, severe, dependence F12.20 Acute alteration in mental status R41.82 Withdrawal from opioids F11.23 Other detention (current) drug therapy Z79.899 Major depressive disorder, recurrent severe without psychotic features F33.2 Generalized anxiety disorder F41.1 Post-traumatic stress disorder, chronic F43.12
[2021-11-04] MEDS: buprenorphine-naloxone 4-1 mg Film 1 EACH SUBLINGUAL (05:51)
[2021-11-04 06:00] VITALS: BP 99/60; PULSE 69; RESP 18; TEMP 36.4; O2SAT 97
[2021-11-04 06:04] VITALS: BP 99/60; PULSE 69; RESP 18; TEMP 36.4; O2SAT 97
--- NOTE | 2021-11-04 07:31 | PC.OT ---
OT EVALUATION ORDERS RECEIVED. PATIENT DISCHARGED BEFORE EVALUATION COULD BE COMPLETED.
== END 2021-11-04 06:28 | disposition home or self-care (01) | DRG 897 ==
LOC: ER 21:03 → NP 21:10
PROVIDERS: Admitting Provider Psychiatry & Neurology Psychiatry; Emergency Provider Emergency Medicine; PCP Nurse Practitioner Family; Visit Provider Psychiatry & Neurology Psychiatry
DX: F11.23 Opioid dependence with withdrawal (principal); F33.2 Major depressive disorder, recurrent severe without psychotic features; F12.20 Cannabis dependence, uncomplicated; Z79.899 Other long term (current) drug therapy; F43.12 Post-traumatic stress disorder, chronic; Z59.00 Homelessness unspecified; F41.1 Generalized anxiety disorder; F17.210 Nicotine dependence, cigarettes, uncomplicated
CPT/HCPCS: 80053; 80306; 80307; 84703; 85025; 96374; 96375; 96376; 99285; J0573; J1630; J2060; J2405; J7030

== ENCOUNTER 2021-11-24 00:39 | Emergency (ER) | payer MEDICAID, SELFPAY ==
[2021-11-24 00:40] VITALS: BP 114/87; PULSE 101; RESP 18; TEMP 36.4; O2SAT 94; BMI 20.7
[2021-11-24 00:45] VITALS: BP 114/87; PULSE 100; RESP 18; O2SAT 94
--- NOTE | 2021-11-24 00:50 | ED_ITS ---
HPI - Extremity Problem General: Chief complaint: Extremity Injury, Lower Stated complaint: R knee pain Time Seen by Provider: 11/24/21 00:40 History of Present Illness: Patient states that while she did shower yesterday she passed out which she says she does occasionally because she has a eating disorder. Said when she came to her knee was hurting. She is not sure if she twisted or hit it. But she crawled out of the shower and has been favoring her knee today. Said her friends talked her into call names and coming her to get her knee checked out. Denies any other problems. Associated symptoms: Deny chest pain, fever(s) or rash Review of Systems Const: Denies: fever(s), chills or body aches Eyes: Denies: eye discomfort ENMT: Denies: throat pain Card: Denies: chest pain Resp: Denies: dyspnea GI: Denies: abdominal pain, nausea or vomiting Musc: Reports: joint pain (Fell in shower yesterday now has knee pain.); Denies: extremity swelling or joint swelling Skin/Breast: Denies: rash Neuro: Denies: headache(s) Psych: Denies: depression or suicidal ideation [facility] ED PFSH: Medical History Cannabis dependence, uncomplicated Opioid dependence, uncomplicated Other stimulant abuse, uncomplicated Post-traumatic stress disorder, chronic Psychiatric care Social History Smoking and tobacco status: current every day smoker cigarettes Packs smoked per day: 1 Years cigarettes smoked: 9 Quit status (tobacco): considering quitting Second hand smoke exposure: Yes Female Reproductive History: Date of last menstrual period: 10/01/20 Physical Exam Const: COMMON NORMALS: no acute distress and patient oriented x3 Resp: COMMON NORMALS: normal respiratory effort Cardio: COMMON NORMALS: regular rate and regular rhythm RATE: regular rate RHYTHM: regular rhythm Extremity: RIGHT LOWER EXTREMITY: Yes knee joint (Tenderness to medial lateral aspect below the kneecap. No swelling noted. ) Right knee: Yes inspection (Bruising left side about nickel size.), Yes palpation (Tenderness below the kneecap) and Yes ROM (Decreased range of motion due to pain.) Neuro: COMMON NORMALS: patient oriented x3 Course Vital Signs: Vital signs: Vital Signs Temperature 97.6 F 11/24/21 00:40 Pulse Rate 101 H 11/24/21 00:40 Respiratory Rate 18 11/24/21 00:40 Blood Pressure 114/87 11/24/21 00:40 Pulse Oximetry 94 11/24/21 00:40 MDM - Extremity (Nontraumatic) Medical Decision Making Knee sprain versus contusion. Radiology state negative for any fracture. Patient follow-up primary care provider. Discharge Plan Discharge Patient Disposition: Home Clinical Impression: Knee pain, right Condition: Stable Prescriptions: No Action amoxicillin-pot clavulanate 875-125 mg tablet 1 tab PO BID 7 Days Qty: 14 0RF buprenorphine-naloxone 8-2 mg tablet, sublingual 1 tab sublingual DAILY Qty: 7 0RF Tylenol Extra Strength 500 mg tablet 1,000 mg PO DAILY PRN (Reason: fever or pain) 0RF ibuprofen 200 mg tablet 800 mg PO DAILY PRN (Reason: fever or pain) 0RF Discharge Orders: Discharge ED (Routine); Ordered 11/24/21 Ordered By: Rayray Dillard Referrals: MARCE Chambers, [employer] [Primary Care Provider] - Discharge Diet: Usual diet Discharge Activity: Increase activity as tolerated Patient Instructions: Knee Sprain (ED) Activity Restrictions/Additional Instructions: Can take ibuprofen for pain. Can apply ice as needed. Follow-up your primary care provider if no significant improvement noted. 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
--- NOTE | 2021-11-24 00:50 | XRR_ITS ---
PROCEDURE INFORMATION: Exam: XR Right Knee Exam date and time: 11/24/2021 12:52 AM Age: 41 years old Clinical indication: Injury or trauma; Fall; Blunt trauma; Knee; Right; Additional info: Injury, pain TECHNIQUE: Imaging protocol: XR Right knee. Views: 3 views. COMPARISON: No relevant prior studies available. FINDINGS: Bones/joints: The alignment of the joints is anatomic. The joint spaces are maintained. There is no evidence of acute fracture. There is no evidence of a joint effusion. Soft tissues: No radiopaque foreign body. There is soft tissue swelling along the medial aspect of the knee. XR/XR knee RT 3V* [id number] IMPRESSION: 1. Right knee soft tissue swelling. 2. No acute fracture or dislocation.
[2021-11-24 01:36] VITALS: BP 123/70; PULSE 96; RESP 18; O2SAT 96
== END 2021-11-24 01:37 | disposition home or self-care (01) ==
PROVIDERS: Emergency Provider Nurse Practitioner Family; PCP Nurse Practitioner Family
DX: M25.561 Pain in right knee (principal); S80.01XA Contusion of right knee, initial encounter; W18.2XXA Fall in (into) shower or empty bathtub, initial encounter; F17.210 Nicotine dependence, cigarettes, uncomplicated
CPT/HCPCS: 73562; 99282